=== PATIENT | male | born 1960 | race Two or more races ===

== ENCOUNTER 2024-05-15 13:54 | Inpatient (IN) | payer OTHER ==
--- OUTSIDE RECORDS SUMMARY | 2024-05-15 13:59 | XMS REPORT | Continuity of Care Document ---
Author Name Unknown Address [address] [facility] [address] [place] [address] [facility] thconnect Address [address] [facility] [address] [place] [address] Care Team Providers Care Visual Presentation Manager Name Role Phone Mary Ann Hernandez Attending Clinician Unavail diamante Allen Attending Clinician Unavailable OMER HANEY P.A. Attending Clinician Unavail SEJAL Ross M.D. Attending Clinician Shellie Ellsworth Attending Clinician Unavailable SELENE JOHNSON M.D. Attending Clinician Unavailab jewell Allen Admitting Clinician Unavailable Jodee Admitting Clinician Unavailable Payers Payer Name Policy Type Policy Number Effective Date Expirati on Date Source [facility] - PHYSICIAN HEALTH CHOICE (MEDICARE REPLACEMENT HMO) [id number] 2022 00:00:00 [facility] ([facility] [id number] [employer] - CHOICE (POS II) [id number] 2017 00:00:00 2022 00:00:00 Problems Condition Name Condition Details Condition Category Status Onset Date Resolution Date Last Treatment Date Treating Clinician Comments Source Gout Gout Problem Active 2021-07 00:00: 00 [facility] Acute gout Acute Gout Problem Active 2021-07 00:00: 00 [facility] Elevated blood-pres sure reading without diagnosis of hypertensi on Elevated Blood-pres sure Reading without Diagnosis of Hypertensi on Problem Active 2021-07 00:00: 00 [facility] Avascular necrosis of bone of hip Avascular Necrosis of Bone of Hip Problem Active 2018-07 00:00: 00 [facility] Abnormal liver function Abnormal Liver Function Problem Active 15 00:00: 00 [facility] Prediabete s Prediabete s Problem Active 2017-07 00:00: 00 [facility] Osteoarthr itis Osteoarthr itis Problem Active 2017-07 00:00: 00 [facility] Hyperlipid emia Hyperlipid emia Problem Active 02-09 00:00: 00 [facility] Steatosis of liver Steatosis of Liver Problem Active 02-09 00:00: 00 [facility] Vitamin D deficiency Vitamin D Deficiency Problem Active 12-23 00:00: 00 [facility] Hemoglobin A1C - diabetic control finding Hemoglobin a1C - Diabetic Control Finding Problem Active 12-23 00:00: 00 [facility] Clinical finding Clinical Finding Problem Active 12-23 00:00: 00 [facility] Trochanter ic bursitis of left hip Trochanter ic bursitis [facility] Hip pain, left Hip pain, left Problem Active [facility] History of gout History of gout Problem Resolve d [facility] Primary localized osteoarthr itis of left hip Primary localized osteoarthr itis of left hip Problem Active [facility] Avascular necrosis of hip, left Avascular necrosis of hip, left Problem Active [facility] Status post left hip replacemen t Status post left hip replacemen t Problem Active [facility] Vitamin D deficiency Vitamin D deficiency Problem Active [facility] [id number] Essential hypertensi on Problem [facility] [id number] Mixed hyperlipid emia Problem [facility] [id number] Chronic gout of multiple sites, unspecifie d cause Problem [facility] [id number] Tophaceous gout Problem [facility] Allergies, Adverse Reactions, Alerts Allergy Name Allergy Type Status Severity Reaction(s) Onset Date Inactive Date Treating Clinician Comments Source dexameth asone Allergy to drug (finding ) [facility] fenoprof en Allergy to drug (finding ) Active [facility] Amoxicil aries Allergy to substanc e Active Severe Hives [facility] Social History Social Habit Start Date Stop Date Quantity Comments Source History of Tobacco Use [facility] Sex Assigned At [facility] Smoking Status Start Date Stop Date Source Former Smoker [facility] Never Smoker [facility] Medications Ordered Medication Name Filled Medication Name Start Date Stop Date Current Medication? Ordering Clinician Indication Dosage Frequency Signature (SIG) Comments Components Source Icosapent Ethyl 1 GM Icosapent Ethyl 1 GM 8-13 00:00: 00 No 2{capsu les_wit h_meals } BID Icosapent Ethyl 1 GM Gabapentin 300 MG Oral Capsule Gabapentin 300 MG Oral Capsule 1-05 00:00: 00 Yes SEJAL DALAL M.D. Q0.5D TAKE 1 CAPSULE TWICE DAILY. [facility] Gabapentin 100 MG Oral Capsule Gabapentin 100 MG Oral Capsule 2019-07 2 00:00: 00 Yes SEJAL DALAL M.D. TAKE ONE CAPSULE BY MOUTH EVERY NIGHT AT BEDTIME [facility] Vitamin D 125 MCG (5000 UT) CAPS Vitamin D 125 MCG (5000 UT) CAPS 2019-07 2 00:00: 00 Yes SEJAL DALAL M.D. TAKE DIRECTED. [facility] HYDROcodone -Acetaminop hen 10-325 MG Oral Tablet HYDROcodone -Acetaminop hen 10-325 MG Oral Tablet 2019-07 0-22 00:00: 00 Yes SEJAL DALAL M.D. 1 Q4H TAKE 1 TABLET EVERY 4 HOURS [facility] traMADol HCl - 50 MG Oral Tablet traMADol HCl - 50 MG Oral Tablet 2019-07 0-02 00:00: 00 Yes SEJAL DALAL M.D. 1 TO 2 TABLET EVERY 6-8 HOURS PRN PN [facility] Vitamin D3 1.25 MG (91749 UT) TABS Vitamin D3 1.25 MG (94618 UT) TABS 9-23 00:00: 00 Yes SEJAL DALAL M.D. TAKE 1 TABLET Weekly FOR 8 WEEKS UNTIL COMPLETE [facility] TaperDex 6-Day 1.5 MG (21) Oral Tablet Therapy Pack TaperDex 6-Day 1.5 MG (21) Oral Tablet Therapy Pack 2018-07 00:00: 00 Yes SELENE JOHNSON M.D. TAKE DIRECTED FOR 6 DAYS [facility] Fenoprofen Calcium 600 MG Oral Tablet Fenoprofen Calcium 600 MG Oral Tablet 2018-07 00:00: 00 Yes SELENE CUPIC M.Husam TAKE 1 CAP 3 TIMES A DAY WITH FOOD AFTER TAPER DEX FINISHED FOR 30 DAYS QTY 90 [facility] allopurinol 100 mg tablet TAKE 2 TABLET BY MOUTH EVERYDAY AT BEDTIME allopurinol 100 mg tablet TAKE 2 TABLET BY MOUTH EVERYDAY AT BEDTIME No allopurino l 100 mg tablet TAKE 2 TABLET BY MOUTH EVERYDAY AT BEDTIME [facility] febuxostat 40 mg tablet TAKE 1 TABLET BY MOUTH EVERY DAY febuxostat 40 mg tablet TAKE 1 TABLET BY MOUTH EVERY DAY No febuxostat 40 mg tablet TAKE 1 TABLET BY MOUTH EVERY DAY [facility] allopurinol 300 mg tablet TAKE 1 TABLET BY MOUTH EVERY DAY allopurinol 300 mg tablet TAKE 1 TABLET BY MOUTH EVERY DAY No allopurino l 300 mg tablet TAKE 1 TABLET BY MOUTH EVERY DAY [facility] indomethaci n ER 75 mg capsule,ext ended release TAKE 1 CAPSULE BY MOUTH TWICE A DAY NEEDED indomethaci n ER 75 mg capsule,ext ended release TAKE 1 CAPSULE BY MOUTH TWICE A DAY NEEDED No indomethac in ER 75 mg capsule,ex tended release TAKE 1 CAPSULE BY MOUTH TWICE A DAY NEEDED [facility] rosuvastati n 20 mg tablet TAKE 1 TABLET BY MOUTH EVERYDAY AT BEDTIME rosuvastati n 20 mg tablet TAKE 1 TABLET BY MOUTH EVERYDAY AT BEDTIME No rosuvastat in 20 mg tablet TAKE 1 TABLET BY MOUTH EVERYDAY AT BEDTIME [facility] aspirin 325 mg tablet,oneal yed release TAKE 1 TABLET BY MOUTH EVERY 12 HOURS aspirin 325 mg tablet,oneal yed release TAKE 1 TABLET BY MOUTH EVERY 12 HOURS No aspirin 325 mg tablet,del ayed release TAKE 1 TABLET BY MOUTH EVERY 12 HOURS [facility] cholecalcif charly (vitamin D3) 125 mcg (5,000 unit) capsule TAKE DIRECTED. cholecalcif charly (vitamin D3) 125 mcg (5,000 unit) capsule TAKE DIRECTED. No cholecalci ferol (vitamin D3) 125 mcg (5,000 unit) capsule TAKE DIRECTED. [facility] gabapentin 300 mg capsule TAKE 1 CAPSULE BY MOUTH TWICE A DAY gabapentin 300 mg capsule TAKE 1 CAPSULE BY MOUTH TWICE A DAY No gabapentin 300 mg capsule TAKE 1 CAPSULE BY MOUTH TWICE A DAY [facility] indomethaci n ER 75 mg capsule,ext ended release TAKE 1 CAPSULE BY MOUTH TWICE A DAY NEEDED indomethaci n ER 75 mg capsule,ext ended release TAKE 1 CAPSULE BY MOUTH TWICE A DAY NEEDED No indomethac in ER 75 mg capsule,ex tended release TAKE 1 CAPSULE BY MOUTH TWICE A DAY NEEDED [facility] allopurinol 300 mg tablet TAKE 1 TABLET BY MOUTH EVERY DAY(Replace ment for Febuxostat) allopurinol 300 mg tablet TAKE 1 TABLET BY MOUTH EVERY DAY(Replace ment for Febuxostat) No allopurino l 300 mg tablet TAKE 1 TABLET BY MOUTH EVERY DAY(Replac ement for Febuxostat ) [facility] clobetasol 0.05 % shampoo APPLY A THIN LAYER BY TOPICAL ROUTE ONCE DAILY TO DRY SCALP LEAVE IN PLACE 15 MIN. THEN LATHER AND RINSE. clobetasol 0.05 % shampoo APPLY A THIN LAYER BY TOPICAL ROUTE ONCE DAILY TO DRY SCALP LEAVE IN PLACE 15 MIN. THEN LATHER AND RINSE. No clobetasol 0.05 % shampoo APPLY A THIN LAYER BY TOPICAL ROUTE ONCE DAILY TO DRY SCALP LEAVE IN PLACE 15 MIN. THEN LATHER AND RINSE. [facility] febuxostat 80 mg tablet TAKE 1 TABLET BY MOUTH EVERY DAY febuxostat 80 mg tablet TAKE 1 TABLET BY MOUTH EVERY DAY No febuxostat 80 mg tablet TAKE 1 TABLET BY MOUTH EVERY DAY [facility] rosuvastati n 20 mg tablet TAKE 1 TABLET BY MOUTH EVERY DAY@ BEDTIME rosuvastati n 20 mg tablet TAKE 1 TABLET BY MOUTH EVERY DAY@ BEDTIME No rosuvastat in 20 mg tablet TAKE 1 TABLET BY MOUTH EVERY DAY@ BEDTIME [facility] indomethaci n ER 75 mg capsule,ext ended release TAKE 1 CAPSULE BY MOUTH TWICE A DAY NEEDED indomethaci n ER 75 mg capsule,ext ended release TAKE 1 CAPSULE BY MOUTH TWICE A DAY NEEDED No indomethac in ER 75 mg capsule,ex tended release TAKE 1 CAPSULE BY MOUTH TWICE A DAY NEEDED [facility] rosuvastati n 20 mg tablet TAKE 1 TABLET BY MOUTH AT BEDTIME rosuvastati n 20 mg tablet TAKE 1 TABLET BY MOUTH AT BEDTIME No rosuvastat in 20 mg tablet TAKE 1 TABLET BY MOUTH AT BEDTIME [facility] indomethaci n ER 75 mg capsule,ext ended release TAKE 1 CAPSULE BY MOUTH TWICE A DAY NEEDED indomethaci n ER 75 mg capsule,ext ended release TAKE 1 CAPSULE BY MOUTH TWICE A DAY NEEDED No indomethac in ER 75 mg capsule,ex tended release TAKE 1 CAPSULE BY MOUTH TWICE A DAY NEEDED [facility] rosuvastati n 20 mg tablet TAKE 1 TABLET BY MOUTH AT BEDTIME rosuvastati n 20 mg tablet TAKE 1 TABLET BY MOUTH AT BEDTIME No rosuvastat in 20 mg tablet TAKE 1 TABLET BY MOUTH AT BEDTIME [facility] Uloric 40 mg tablet Take 1 tablet every day by oral route. Uloric 40 mg tablet Take 1 tablet every day by oral route. No 1 Q1D Uloric 40 mg tablet Take 1 tablet every day by oral route. [facility] Indomethaci n ER 75 MG Oral Capsule Extended Release Indomethaci n ER 75 MG Oral Capsule Extended Release Yes [facility] Allopurinol 300 MG Oral Tablet Allopurinol 300 MG Oral Tablet Yes [facility] Crestor 20 MG Oral Tablet Crestor 20 MG Oral Tablet Yes [facility] Indomethaci n ER 75 MG Indomethaci n ER 75 MG No 1{capsu le_with _food} QD Indomethac in ER 75 MG Allopurinol 300 MG Allopurinol 300 MG No 1{table t} QD Allopurino l 300 MG Rosuvastati n Calcium 40 MG Rosuvastati n Calcium 40 MG No 1{table t} QD Rosuvastat in Calcium 40 MG Vital Signs Vital Name Observation Time Observation Value Comments S ource temperature 2024-04-09 13:20:00 97.4 [degF] Com mon [facility] bmi 2024-04-09 13:20:00 27.63 kg/m2 Comm on [facility] oximetry 2024-04-09 13:20:00 98 % Commo n [facility] respiratory rate 2024-04-09 13:20:00 16 /min [facility] blood pressure systolic 2024-04-09 13:20:00 122 mm[Hg] [facility] blood pressure diastolic 2024-04-09 13:20:00 76 mm[Hg] [facility] height 2024-04-09 13:20:00 63 [in_i] Commo n [facility] weight 2024-04-09 13:20:00 156.0 [lb_av] Co mmon [facility] height 2024-03-12 13:20:00 63 [in_i] Commo n [facility] weight 2024-03-12 13:20:00 154 [lb_av] Comm on [facility] temperature 2024-03-12 13:20:00 98.3 [degF] Com [facility] bmi 2024-03-12 13:20:00 27.28 kg/m2 Comm on [facility] oximetry 2024-03-12 13:20:00 98 % Commo n [facility] respiratory rate 2024-03-12 13:20:00 16 /min Common [facility] blood pressure systolic 2024-03-12 13:20:00 158 mm[Hg] Common [facility] blood pressure diastolic 2024-03-12 13:20:00 72 mm[Hg] Common [facility] height 2024-03-12 13:20:00 63 [in_i] Commo n [facility] weight 2024-03-12 13:20:00 154 [lb_av] Comm on [facility] temperature 2024-03-12 13:20:00 98.3 [degF] Com [facility] bmi 2024-03-12 13:20:00 27.28 kg/m2 Comm on [facility] oximetry 2024-03-12 13:20:00 98 % Commo n [facility] respiratory rate 2024-03-12 13:20:00 16 /min Common [facility] blood pressure systolic 2024-03-12 13:20:00 158 mm[Hg] [facility] blood pressure diastolic 2024-03-12 13:20:00 72 mm[Hg] Common [facility] height 2024-02-13 13:20:00 63 [in_i] Commo n [facility] weight 2024-02-13 13:20:00 155 [lb_av] Comm on [facility] temperature 2024-02-13 13:20:00 97.5 [degF] Com mon [facility] bmi 2024-02-13 13:20:00 27.45 kg/m2 Comm on [facility] oximetry 2024-02-13 13:20:00 96 % Commo n [facility] respiratory rate 2024-02-13 13:20:00 16 /min Common [facility] blood pressure systolic 2024-02-13 13:20:00 142 mm[Hg] [facility] blood pressure diastolic 2024-02-13 13:20:00 80 mm[Hg] [facility] BP Diastolic 2022-12-30 00:00:00 82 mm[Hg] [facility] Height 2022-12-30 00:00:00 63 [in_i] [facility] BMI (Body Mass Index) 2022-12-30 00:00:00 29.8 kg/m2 [facility] ly Practice BP Systolic 2022-12-30 00:00:00 137 mm[Hg] [facility] Body Weight 2022-12-30 00:00:00 168 [lb_av] [facility] BP Diastolic 2022-05-24 00:00:00 72 mm[Hg] [facility] Height 2022-05-24 00:00:00 63 [in_i] [facility] BMI (Body Mass Index) 2022-05-24 00:00:00 29 kg/m2 [facility] Practice BP Systolic 2022-05-24 00:00:00 158 mm[Hg] [facility] Body Weight 2022-05-24 00:00:00 163.9 [lb_av] [facility] BP Diastolic 2022-05-06 00:00:00 70 mm[Hg] [facility] Height 2022-05-06 00:00:00 63 [in_i] [facility] ge Family Practice BMI (Body Mass Index) 2022-05-06 00:00:00 28 kg/m2 [facility] ly Practice BP Systolic 2022-05-06 00:00:00 136 mm[Hg] [facility] Body Weight 2022-05-06 00:00:00 158 [lb_av] [facility] BP Diastolic 2021-02-03 00:00:00 78 mm[Hg] Med [facility] Height 2021-02-03 00:00:00 63 [in_i] [facility] BMI (Body Mass Index) 2021-02-03 00:00:00 27.6 kg/m2 [facility] ly Practice BP Systolic 2021-02-03 00:00:00 118 mm[Hg] [facility] Body Weight 2021-02-03 00:00:00 156 [lb_av] [facility] Height 2020-02-19 00:00:00 63 [in_i] [facility] ge Family Practice BMI (Body Mass Index) 2020-02-19 00:00:00 28.7 kg/m2 [facility] ly Practice Body Weight 2020-02-19 00:00:00 162 [lb_av] [facility] BP Diastolic 2019-04-11 00:00:00 76 mm[Hg] [facility] Height 2019-04-11 00:00:00 63 [in_i] [facility] ge Family Practice BMI (Body Mass Index) 2019-04-11 00:00:00 27.8 kg/m2 [facility] ly Practice BP Systolic 2019-04-11 00:00:00 126 mm[Hg] [facility] Body Weight 2019-04-11 00:00:00 157 [lb_av] [facility] BP Diastolic 2019-01-25 00:00:00 72 mm[Hg] [facility] Height 2019-01-25 00:00:00 63 [in_i] [facility] BMI (Body Mass Index) 2019-01-25 00:00:00 28.4 kg/m2 [facility] ly Practice BP Systolic 2019-01-25 00:00:00 124 mm[Hg] [facility] Body Weight 2019-01-25 00:00:00 160.2 [lb_av] [facility] Body height 2020-07-09 10:55:00 64 [in_us] [facility] Weight 2020-07-09 10:55:00 162 [lb_av] [facility] Body mass index (BMI) [Ratio] 2020-07-09 10:55:00 27.81 kg/m2 [facility] Body height 2020-05-21 15:00:00 64 [in_us] [facility] Weight 2020-05-21 15:00:00 162 [lb_av] [facility] Body mass index (BMI) [Ratio] 2020-05-21 15:00:00 27.81 kg/m2 [facility] Body height 2020-04-16 15:23:00 64 [in_us] [facility] Weight 2020-04-16 15:23:00 162 [lb_av] [facility] Body mass index (BMI) [Ratio] 2020-04-16 15:23:00 27.81 kg/m2 [facility] Procedures Procedure Date / Time Performed Performing Clinician Source Post Op Promis 29 Survey 2020-06-05 00:00:00 [facility] [U] XRAY HIP UNILATERAL MIN 2 VWS LEFT [id number] 2020-05-19 00:00:00 [facility] Total Replacement of Hip 2020-04-30 00:00:00 [facility] Physical Therapy 2019-05-28 00:00:00 [facility] US, liver 2019-04-11 00:00:00 [facility] MRI, hip, w/o contrast 2019-04-11 00:00:00 [facility] Colonoscopy 2013-07-31 00:00:00 [facility] History of Knee Surgery [facility] Plan of Care Planned Activity Planned Date Details Comments Source Diagnostic Test Pending 2022-12-30 00:00:00 uric acid, serum or plasma [code = uric acid, serum or plasma] [facility] Diagnostic Test Pending 2022-12-30 00:00:00 CMP, serum or plasma [code = CMP, serum or plasma] [facility] Diagnostic Test Pending 2022-12-30 00:00:00 lipid panel, serum [code = lipid panel, serum] [facility] Diagnostic Test Pending 2022-12-30 00:00:00 CBC w/ auto diff [code = CBC w/ auto diff] [facility] Diagnostic Test Pending 2022-12-30 00:00:00 PSA, serum or plasma [code = PSA, serum or plasma] [facility] Start Date/Time End Date/Time Encounter Type Admission Type Attending Clinicians Care Facility Care Department Encounter ID Source 2024-02-13 13:01:01 Outpatient Mary Ann [facility] [id number] [facility] 2024-04-09 00:00:00 2024-04-09 00:00:00 OFFICE VISIT ESTAB PT LEVEL 3 [facility] [id number] [facility] 2024-03-12 00:00:00 2024-03-12 00:00:00 OFFICE VISIT ESTAB [facility] [id number] [facility] 2024-03-12 00:00:00 2024-03-12 00:00:00 INIT ANNUAL [facility] WELLNESS VISIT [facility] [id number] [facility] 2024-03-11 00:00:00 2024-03-11 00:00:00 (TEL) [facility] [id number] [facility] 2024-02-13 00:00:00 2024-02-13 00:00:00 OFFICE VISIT NEW PT LEVEL 4 [facility] [id number] [facility] 2024-02-13 00:00:00 2024-02-13 00:00:00 (TEL) [facility] [id number] [facility] 2023-08-23 00:00:00 2023-08-23 00:00:00 Outpatient Wero_Nathaniel_RUPAL [facility] [id number] [facility] e 2023-02-20 00:00:00 2023-02-20 00:00:00 Outpatient Wero_JOSE [facility] [id number] [facility] e 2022-12-30 00:00:00 2022-12-30 00:00:00 Ronen Augustin MD: [address], [address], [place] [address] , Ph. [facility] - [place] - VM_HOU_Memo rial [id number] [facility] 2022-12-29 00:00:00 2022-12-29 00:00:00 Outpatient Cerana_M VFP VFP [id number] [facility] 2022-12-29 00:00:00 2022-12-29 00:00:00 Outpatient Cerana_M VFP VFP [id number] [facility] 2022-12-29 00:00:00 2022-12-29 00:00:00 Outpatient Cerana_M_HO U_MD VFP VFP [id number] [facility] 2022-12-10 00:00:00 2022-12-10 00:00:00 Outpatient Cerana_M VFP VFP [id number] [facility] 2022-09-28 00:00:00 2022-09-28 00:00:00 Outpatient Cerana_M VFP VFP [id number] [facility] 2022-08-11 00:00:00 2022-08-11 00:00:00 Outpatient Cerana_M VFP VFP [id number] [facility] 2022-07-07 00:00:00 2022-07-07 00:00:00 Outpatient Cerana_M VFP VFP [id number] [facility] 2022-06-02 00:00:00 2022-06-02 00:00:00 Outpatient Cerana_M VFP VFP [id number] [facility] 2022-05-24 00:00:00 2022-05-24 00:00:00 Outpatient Cerana_M VFP VFP [id number] [facility] 2022-05-24 00:00:00 2022-05-24 00:00:00 Ronen Augustin MD: [address], [address], [place] [address] , Ph. [facility]FP [place] - [facility] [place] - [facility]_Mem[facility] rial [id number] [facility] 2022-05-06 00:00:00 2022-05-06 00:00:00 Outpatient Cerana_M VFP VFP [id number] [facility] 2022-05-06 00:00:00 2022-05-06 00:00:00 Ronen Augustin MD: [address], [address] [address] , Ph. [facility]FP [place] - [facility] [place] - VM_HOU_Memo rial [id number] [facility] 2022-05-05 00:00:00 2022-05-05 00:00:00 Outpatient Cerana_M VFP VFP [id number] [facility] 2021-02-05 00:00:00 2021-02-05 00:00:00 Outpatient Cerana_M VFP VFP [id number] [facility] 2021-02-03 00:00:00 2021-02-03 00:00:00 Valentin Rosado MD: [address], [address], [place] [address] , Ph. Cerana_M VFP [place] - [facility] - VM_HOU_Memo rial [id number] [facility] 2020-09-02 03:31:00 2020-09-02 03:31:00 Outpatient Cerana_M VFP VFP [id number] [facility] 2020-07-09 09:15:00 2020-07-09 09:15:00 Appointmen t; OMER HANEY P.A. ADAMEK, NICOLE, P.Lisbet. [facility] Orthopedics - [facility] [id number] [place] [facility] 2020-05-21 13:45:00 2020-05-21 13:45:00 Appointmen t; OMER HANEY P.A. ADAMEK, NICOLE PConrado [facility] Orthopedics at [facility] A [id number] [place] [facility] 2020-05-05 10:30:00 2020-05-05 10:30:00 Appointmen t; SEJAL DALAL M.D. FREEDHAND, ADAM, M.D. [facility] [id number] [place] [facility] 2020-04-16 13:30:00 2020-04-16 13:30:00 Appointmen t; SEJAL DALAL M.D. FREEDHAND, ADAM, M.D. [facility] Orthopedics [facility] [id number] [place] [facility] 2020-03-08 12:08:00 2020-03-08 12:08:00 Outpatient Feldman_M VFP VFP [id number] [facility] 2020-02-21 09:32:00 2020-02-21 09:32:00 Outpatient Feldman_M VFP VFP [id number] [facility] 2020-02-19 00:00:00 2020-02-19 00:00:00 Ronen Castro MD: [address], [facility] [address], [place] [address] , Ph. Feldman_M VFP [facility] - VM_HOU_Memo [facility] [id number] [facility] 2019-05-28 14:00:00 2019-05-28 14:00:00 Appointmen t; SELENE JOHNSON M.D. CUPIC, ZORAN, M.D. [facility] Orthopedics [facility] [id number] [place] [facility] 2019-04-11 00:00:00 2019-04-11 00:00:00 Ronen Castro MD: [address] [facility] [address], [place] [address] , Ph. [facility] [phone] [id number] [facility] 2019-01-25 00:00:00 2019-01-25 00:00:00 Ronen Castro MD: [id number], [facility] [address], [place] [address] , Ph. [facility] [phone] [id number] [facility] Results Test Description Test Time Test Comments Results Result Co mments Source Hemoglobin A1c/Hemoglobin.total in [id number] 00:00:00* Test Item Value Reference Range Interpretation Comme [facility] Hemoglobin A1c/Hemoglobin.to mahendra in Blood (test code = 4548-4) 6.0 % 1.0-5.7 H average blood glucose (calcu lation) (test code = average blood glucose (calculation)) 126 mg/dL [facility] - Serum or [id number] 00:00:00* Test Item Value Reference Range Interpretation Comme nts HDL (test code = HDL) 131 mg/dL triglyceride (test code = triglyceride) 93 mg/dL <150 VLDL (calculated) (test code = VLDL (calculated)) 19 mg/dL cholesterol/HDL ratio (test code = cholesterol/HDL ratio) 2.0 mg/dL non-HDL cholesterol (calcula rosemarie) (test code = non-HDL cholesterol (calculated)) 137 mg/dL <160 cholesterol (test code = cholesterol) 268 mg/dL <200 H Cholesterol in LDL [Mass/vol ume] in Serum or Plasma (test code = 2089-1) 118 mg/dL <130 [facility] CenterDahlddog46-Uptkddmdgdkure D3+25-Hydroxyvitamin D2 [Mass/volume] in Serum or [id number] 00:00:00* Test Item Value Reference Range Interpretation Comme [facility] vitamin D 25OH (test code = vitamin D 25OH) 26.7 NG/mL 30.0-96.0 L [facility], serum or [id number] 00:00:00* Test Item Value Reference Range Interpretation Comme [facility] PSA, total (test code = PSA, total) 1.06 NG/mL <4.00 [facility] Center[facility] [Mass/volume] in Serum or [id number] 00:00:00 * Test Item Value Reference Range Interpretation Comme [facility] uric acid (test code = uric acid) 7.6 mg/dL 3.5-7.2 H [facility] CenterCom[facility] 2000 panel - Serum or Plasma 2022-05-06 00:00:00* Test Item Value Reference Range Interpretation Comme [facility] ALT (test code = ALT) 43 U/L 0-55 AST (test code = AST) 42 U/L 5-34 H BUN (test code = BUN) 14.4 mg/dL 8.4-25.0 alk phos (test code = alk phos) 59 unit/L 40-150 glucose (test code = glucose) 94 mg/dL 70-99 albumin (test code = albumin) 4.7 g/dL 3.4-5.1 creatinine (test code = creatinine) 0.86 mg/dL 0.72-1.25 eGFR (test code = eGFR) >60 total bilirubin (test code = total bilirubin) 0.6 mg/dL 0.2-1.2 sodium (test code = sodium) 145 mEq/L 135-145 potassium (test code = potassium) 4.5 mEq/L 3.5-5.3 chloride (test code = chloride) 101 mmol/L 98-110 total protein (test code = t otal protein) 8.3 g/dL 6.1-8.2 H calcium (test code = calcium) 10.5 mg/dL 8.8-10.2 H CO2 (test code = CO2) 29.5 mmol/L 20.0-32.0 anion gap (test code = anion gap) 15 [facility][U] XRAY HIP UNILATERAL MIN 2 VWS LEFT [id number] 14:17:00Images acquired, not reported on this accession number.[facility][U] XRAY HIP UNILATERAL MIN 2 VWS LEFT [id number] 13:38:00Images acquired, not reported on this accession number.[facility]
[2024-05-15 15:46] LABS: Absolute Basophils 0.1 K/uL (0-0.5); Absolute Lymphocytes (CBC) 1.3 K/uL (0.7-4.9); Absolute Monocytes 1.4 K/uL (0.1-1.3); Basophils % 0.3 % (0-1.3); Eosinophils % 0.1 % (0-4.4); Hematocrit 37.3 % (39.6-49.0); Hemoglobin 12.5 g/dL (13.6-17.9); Lymphocytes % 4.9 % (15.3-44.8); MCH 31.9 pg (27.0-35.0); MCHC 33.6 g/dL (32.0-36.0); MCV 95.1 fL (80-100); MPV 7.2 fL (7.6-11.3); Monocytes % 5.1 % (3.3-12.3); Neutrophils % 89.6 % (41.7-73.7); Platelets 302 thou/uL (152-406); RBC Red Blood Cell Count 3.93 M/uL (4.33-5.43); Red Cell Distribution Width 14.3 % (12.1-15.2)
[2024-05-15 16:02] LABS: PT Prothrombin Time 10.8 SECONDS (9.4-12.5); PTT, Activated Partial Thromb 39.7 SECONDS (24.3-36.9); Protime INR 0.96
[2024-05-15] MEDS ORDERED: FENTANYL CITR 100 MCG/2 ML ONE (16:07)
[2024-05-15] MEDS ORDERED: VANCOMYCIN 1 GM/VIAL ONE (16:07)
[2024-05-15] MEDS ORDERED: NA CHLORIDE 0.9% 250 ML ONE (16:07)
[2024-05-15] MEDS ORDERED: CEFEPIME 1 GM/VIAL ONE (16:08)
[2024-05-15] MEDS ORDERED: NA CHLORIDE 0.9% 1,000 ML ONE ×2 (16:08→16:53)
[2024-05-15] MEDS ORDERED: NA CHLORIDE 0.9% 100 ML ONE (16:08)
[2024-05-15 16:15] LABS: Albumin 2.6 g/dL (3.4-5.0); Albumin/Globulin Ratio 0.5 (1.1-1.8); Anion Gap 12.4 mEq/L (5.0-15.0); Bilirubin Total 0.9 mg/dL (0.2-1.0); Globulin 5.6 g/dL (2.3-3.5); Potassium 3.4 mEq/L (3.5-5.1); Protein, Total 8.2 g/dL (6.4-8.2)
--- NOTE | 2024-05-15 16:32 | RAD REPORT ---
EXAMINATION: XR LEFT ANKLE CLINICAL INDICATION: Male, 63 years old. Swelling;Pain TECHNIQUE: 3 view radiograph of the left ankle were obtained. COMPARISON: No prior exam. FINDINGS: There is a large amount of soft tissue swelling about the ankle, particularly laterally. N o fracture or dislocation seen. Nonspecific area of sclerosis seen first metatarsal.
--- NOTE | 2024-05-15 16:50 | EDPHYS ---
Physician Documentation [facility] Name: Betsey Gómez Age: 63 yrs Sex: Male : 1960 Arrival Date: 05/15/2024 Time: 13:54 Bed 18 Private MD: ED Physician Migue Laguerre HPI: 05/15 14:15 This 63 yrs old [place] Male presents to ER via Ambulatory with complaints of Wound cp Infection. 14:15 The patient presents with an injury, pain, that is acute, swelling, tenderness. cp 14:15 The complaints affect the lateral aspect of left calf, left lateral ankle, lateral cp aspect of left foot and dorsum of left foot. Onset: The symptoms/episode began/occurred 5 day(s) ago. 14:15 Associated signs and symptoms: Pertinent positives: warmth, Pertinent negatives fever, cp numbness. Treatment prior to arrival includes: no previous treatment. Family member interprets and reports patient was outside when he felt something puncture skin of left ankle about 5 days ago. Historical: - Allergies: 14:07 No Known Allergies; ll1 - Home Meds: 14:07 rosuvastatin oral [Active]; Allopurinol Oral [Active]; ll1 - PMHx: 14:07 Gout; Hypercholesterolemia; ll1 - Immunization history:: Adult Immunizations up to date. - Infectious Disease History:: Denies. - Social history:: Smoking status: Patient denies any tobacco usage or history of. ROS: 14:20 MS/extremity: Positive for erythema, pain, swelling, tenderness, of the left foot and cp left ankle and left lower leg, 14:20 Constitutional: Negative for fever, poor PO intake, cp 14:20 Respiratory: Negative for cough, shortness of breath, wheezing, 14:20 Abdomen/GI: Negative for abdominal pain, vomiting, diarrhea, constipation, 14:20 Neuro: Negative for altered mental status, dizziness, headache, weakness, 14:20 Eyes: Negative for injury, pain, redness, and discharge, cp 14:20 Cardiovascular: Negative for chest pain, cp 14:20 All other systems are negative, Exam: 14:25 Constitutional: The patient appears in no acute distress, alert, awake, cp non-diaphoretic, non-toxic, well developed, well nourished, 14:25 Head/Face: Normocephalic, atraumatic. cp 14:25 Eyes: Periorbital structures: appear normal, Conjunctiva: normal, no exudate, no injection, Sclera: no appreciated abnormality, Lids and lashes: appear normal, bilaterally, 14:25 ENT: External ear(s): are unremarkable, Nose: is normal, Mouth: Lips: moist, Oral mucosa: pink and intact, moist, Posterior pharynx: is normal, airway is patent, no erythema, no exudate, 14:25 Chest/axilla: Inspection: normal, 14:25 Cardiovascular: Rate: normal, Rhythm: regular, 14:25 Respiratory: the patient does not display signs of respiratory distress, Respirations: normal, no use of accessory muscles, no retractions, labored breathing, is not present, Breath sounds: are clear throughout, no decreased breath sounds, no stridor, no wheezing, 14:25 Abdomen/GI: Inspection: abdomen appears normal, Palpation: abdomen is soft and non-tender, in all quadrants, 14:25 Back: pain, is absent, ROM is normal, 14:25 Musculoskeletal/extremity: Extremities: noted in the left lower leg and left ankle and cp lef foot: Circumferential erythema and swelling noted, moderate amount of swelling noted to lateral malleolus of the left ankle, there is drainage that appears purulent and superficial wounds noted, tenderness to palpation is appreciated scant amount of drainage expressed, Pulses: noted to be 2+ in the left dorsalis pedis artery, the left foot and left ankle and left lower leg Sensation intact. 14:25 Neuro: Orientation: to person, place \T\ time. Mentation: is normal, Motor: moves all cp fours, 15:30 ECG was reviewed by the Attending Physician. cp Vital Signs: 14:06 BP 122 / 70; Pulse 89; Resp 16; Temp 97.4; Pulse Ox 98% ; ll1 16:43 BP 149 / 70; Pulse 63; Resp 18; Pulse Ox 95% on R/A; mb9 17:52 BP 145 / 98; Pulse 63; Resp 16; Pulse Ox 100% on R/A; mb9 19:00 BP 132 / 78; Pulse 65; Resp 18; Pulse Ox 98% on R/A; al5 21:30 BP 124 / 62; Pulse 81; Resp 16; Pulse Ox 97% on R/A; Weight 76.2 kg; Height 5 ft. 3 in. al5 ; 21:30 Body Mass Index 29.76 (76.20 kg, 160.02 cm) al5 MDM: 14:07 Medical Screening Exam initiated cp 15:00 Differential diagnosis: sepsis, cellulitis, septic joint, abscess. cp 16:45 Data reviewed: vital signs, nurses notes, lab test result(s), EKG, radiologic studies, cp plain films, ultrasound, and as a result, I will admit patient. 16:45 Management of patient was discussed with the following: Hospitalist: Abigail العراقي will admit after discussion. I considered the following discharge prescriptions or medication management in the emergency department Medications were administered in the Emergency Department. See MAR. Independent interpretation of the following test(s) in the Emergency Department EKG: See my EKG interpretation above. 17:20 Management of patient was discussed with the following: Advisor To Command In Combat: DR Borja will cp consult after discussion. 17:30 Post IV fluid administration reassessment for Sepsis: Client not prescribed the 30 cp mL/kg IVF due to: Amount of IVF prescribed: 1999 Sepsis focused reassessment complete. Heart: Regular rate/rhythm noted. Lungs: Noted to be clear bilaterally. Current vital signs reviewed: Yes. 05/15 14:13 Order name: Blood Culture Adult (2) 05/15 14:13 Order name: CBC with Diff 05/15 16:04 Interpretation: Normal except: WBC 26.70; RBC 3.93; HGB 12.5; HCT 37.3; MPV 7.2; RICHARD% cp 89.6; LYM% 4.9; NEUT A 24.0; MNA 1.4. 05/15 14:13 Order name: CMP; Complete Time: 16:42 05/15 16:42 Interpretation: Normal except: NA 133; K 3.4; GLUC 150; BUN 25; CRE 1.76; GFR 42; ALK cp 469; ALT 196; AST 99; ALB 2.6; GLOB 5.6; A/G 0.5. 05/15 14:13 Order name: Lactate w/ 2H reflex if indic.; Complete Time: 16:04 05/15 16:04 Interpretation: Abnormal: LAC 2.4. 05/15 14:13 Order name: Protime (+inr); Complete Time: 16:04 05/15 16:09 Interpretation: Reviewed. cp 05/15 14:13 Order name: Ptt, Activated; Complete Time: 16:04 cp 05/15 16:09 Interpretation: Reviewed. cp 05/15 14:13 Order name: Urinalysis w/ reflexes cp 05/15 14:13 Order name: Wound Culture cp 05/15 15:57 Order name: Manual Differential EDMS 05/15 17:40 Order name: Lactate w/ 2H reflex if indic. mb9 05/15 18:01 Order name: Ghost Lactate-NO COLLECT Timer EDMS 05/15 18:35 Order name: Lactate w/ 2H reflex if indic. EDMS 05/15 16:03 Order name: XRAY Ankle LEFT 3 view; Complete Time: 16:42 cp 05/15 16:03 Order name: US Extremity Venous Unilateral Ltd; Complete Time: 17:21 cp 05/15 16:03 Order name: Lower Extremity Artery Uni Ltd; Complete Time: 17:21 cp 05/15 17:19 Order name: CONS Physician Consult EDMS 05/15 14:13 Order name: Accucheck; Complete Time: 15:59 cp 05/15 14:13 Order name: Cardiac monitoring; Complete Time: 15:39 cp 05/15 14:13 Order name: EKG - Nurse/Tech; Complete Time: 15:39 cp 05/15 14:13 Order name: IV Saline Lock - Large Bore; Complete Time: 15:37 cp 05/15 14:13 Order name: Labs collected and sent; Complete Time: 15:37 cp 05/15 14:13 Order name: O2 Per Protocol; Complete Time: 15:39 cp 05/15 14:13 Order name: O2 Sat Monitoring; Complete Time: 15:39 cp 05/15 14:13 Order name: Vital Signs; Complete Time: 15:40 cp EC:30 Rate is 64 beats/min. Rhythm is regular. ME interval is normal. QRS interval is normal. cp QT interval is normal. Interpreted by me. Reviewed by me. Administered Medications: 16:16 Drug: fentaNYL (PF) IVP 25 mcg IVP once Route: IVP; Site: right forearm; mb9 17:00 Follow up: Response: No adverse reaction mb9 16:17 Drug: NS 0.9% IV 1000 ml IV at 1000 ml once; to be given as a bolus over 60 minutes mb9 Route: IV; Rate: 1000 ml; Site: right forearm; 17:00 Follow up: Response: No adverse reaction; IV Status: Completed infusion mb9 16:17 Drug: Cefepime IVPB 1 grams IVPB at 200 ml/hr once over 30 mins; (mix in NS 100 mL) mb9 Route: IVPB; Rate: 200 ml/hr; Infused Over: 30 mins; Site: right forearm; 16:47 Follow up: Response: No adverse reaction; IV Status: Completed infusion mb9 16:47 Drug: vancoMYCIN IVPB 1 grams IVPB once over 2 hrs Route: IVPB; Infused Over: 2 hrs; mb9 Site: right forearm; 18:53 Follow up: Response: No adverse reaction; IV Status: Completed infusion mb9 17:00 Drug: NS 0.9% IV 1000 ml IV at 1 bolus Per protocol; to be given as a bolus over 60 mb9 minutes Route: IV; Rate: 1 bolus; Site: right forearm; 17:54 Follow up: Response: No adverse reaction; IV Status: Completed infusion mb9 Disposition Summary: 05/15/24 16:49 Hospitalization Ordered Notes: Hospitalization Status: Inpatient Admission cp Provider: Agustina Sung cp Location: Telemetry/MedSur (Inpatient) cp Condition: Stable cp Problem: new cp Symptoms: have improved cp Bed/Room Type: Standard Room Assignment: 222(05/15/24 21:11) kl Diagnosis - Cellulitis of left lower limb cp - Cutaneous abscess of left lower limb cp - Sepsis, unspecified organism cp Forms: - Medication Reconciliation Form cp - SBAR form cp - Leadership Thank You Letter cp Signatures: Dispatcher [employer] Deepa Duran RN RN kl Page, Corey, PA PA cp Brad Ghosh RN RN ll1 Kelley Lehman RN RN mb9 Corrections: (The following items were deleted from the chart) 14:14 14:14 BLOOD CULTURE*+BA.LAB.BRZ ordered. EDMS EDMS 14:14 14:14 CBC+H.LAB.BRZ ordered. EDMS EDMS 14:14 14:14 COMPREHENSIVE METABOLIC PANEL+C.LAB.BRZ ordered. EDMS EDMS 14:14 14:14 LACTATE+C.LAB.BRZ ordered. EDMS EDMS 14:14 14:14 PROTIME (+INR)+COAG.LAB.BRZ ordered. EDMS EDMS 14:14 14:14 PTT, ACTIVATED+COAG.LAB.BRZ ordered. EDMS EDMS 14:14 14:14 Urinalysis+U.LAB.BRZ ordered. EDMS EDMS 14:14 14:14 Wound Culture+BA.LAB.BRZ ordered. EDMS EDMS 21:11 16:49 cp kl 05/16 21:12 10 14:20 All other systems are negative, cp cp
--- NOTE | 2024-05-15 16:50 | ER ---
Nurse's Notes [facility] Name: Betsey Gómez Age: 63 yrs Sex: Male : 1960 Arrival Date: 05/15/2024 Time: 13:54 Bed 18 Private MD: Diagnosis: Cellulitis of left lower limb;Cutaneous abscess of left lower limb;Sepsis, unspecified organism Presentation: 05/15 14:06 Chief complaint: Patient's son or daughter states: LEFT ANKLE INJURY 5 DAYS AGO WORKING ll1 ON FENCE, NOW EDEMA/ERYTHEMA TO LEFT ANKLE AND FOOT WITH IMPAIRED GAIT. Coronavirus screen: At this time, the client does not indicate any symptoms associated with coronavirus-19. Ebola Screen: No symptoms or risks identified at this time. Initial Sepsis Screen: Does the patient meet any 2 criteria? No. Patient's initial sepsis screen is negative. Does the patient have a suspected source of infection? No. Patient's initial sepsis screen is negative. Risk Assessment: Do you want to hurt yourself or someone else? Patient reports no desire to harm self or others. Onset of symptoms is unknown. 14:06 Method Of Arrival: Ambulatory ll1 14:06 Acuity: SHALINI 3 ll1 Triage Assessment: 14:07 General: Appears in no apparent distress. uncomfortable, Behavior is calm, cooperative, ll1 appropriate for age. Pain: Complains of pain in left foot and anterior aspect of left ankle. EENT: No deficits noted. Neuro: No deficits noted. Cardiovascular: No deficits noted. Respiratory: No deficits noted. GI: No signs and/or symptoms were reported involving the gastrointestinal system. : No signs and/or symptoms were reported regarding the genitourinary system. Derm: Skin is red. Musculoskeletal: Swelling present in left foot. Injury Description: Laceration sustained to left foot. Historical: - Allergies: 14:07 No Known Allergies; ll1 - Home Meds: 14:07 rosuvastatin oral [Active]; Allopurinol Oral [Active]; ll1 - PMHx: 14:07 Gout; Hypercholesterolemia; ll1 - Immunization history:: Adult Immunizations up to date. - Infectious Disease History:: Denies. - Social history:: Smoking status: Patient denies any tobacco usage or history of. Screenin:58 [facility] ED Fall Risk Assessment (Adult) History of falling in the last 3 months, mb9 including since admission No falls in past 3 months (0 pts) Confusion or Disorientation No (0 pts) Intoxicated or Sedated No (0 pts) Impaired Gait No (0 pts) Mobility Assist Device Used Altered Elimination No (0 pt) Score/Fall Risk Level 0 - 2 = Low Risk Oriented to surroundings, Maintained a safe environment, Educated pt \T\ family on fall prevention, incl call for assistance when getting out of bed. Abuse screen: Denies threats or abuse. Nutritional screening: No deficits noted. Tuberculosis screening: No symptoms or risk factors identified. Assessment: 15:56 General: Appears in no apparent distress. Behavior is calm, cooperative. Pain: mb9 Complains of pain in left foot Pain radiates to left leg Pain currently is 8 out of 10 on a pain scale. Quality of pain is described as throbbing, Pain began 2-3 days ago. Is continuous. Neuro: [place] Agitation-Sedation Scale (RASS): 0 - Alert and Calm Level of Consciousness is awake, alert, obeys commands, Oriented to person, place, time, situation, Appropriate for age. Cardiovascular: Patient's skin is warm and dry. Cardiovascular: Pulses are 1+ in left posterior tibial artery and left dorsalis pedis artery. Respiratory: Airway is patent Respiratory effort is even, unlabored, Respiratory pattern is regular, symmetrical. GI: Abdomen is round non-distended. : No signs and/or symptoms were reported regarding the genitourinary system. EENT: No signs and/or symptoms were reported regarding the EENT system. Derm: Abscess located on anterior aspect of left ankle is quarter sized, has purulent drainage, has foul odor, is hot to touch, is red. Musculoskeletal: Swelling present in left leg. 17:52 Reassessment: Patient and/or family updated on plan of care and expected duration. Pain mb9 level reassessed. Patient is alert, oriented x 3, equal unlabored respirations, skin warm/dry/pink. Patient states feeling better. Patient states symptoms have improved. 18:54 Reassessment: No changes from previously documented assessment. Patient and/or family mb9 updated on plan of care and expected duration. Pain level reassessed. Patient is alert, oriented x 3, equal unlabored respirations, skin warm/dry/pink. 19:00 General: Appears in no apparent distress. uncomfortable, Behavior is calm, cooperative. al5 Pain: Complains of pain in left lateral malleolus and lateral aspect of left calf. Neuro: Level of Consciousness is awake, alert, obeys commands, Oriented to person, place, time, situation. Cardiovascular: Patient's skin is warm and dry. Respiratory: Airway is patent Respiratory effort is even, unlabored, Respiratory pattern is regular, symmetrical. GI: No signs and/or symptoms were reported involving the gastrointestinal system. : No signs and/or symptoms were reported regarding the genitourinary system. EENT: No signs and/or symptoms were reported regarding the EENT system. Derm: cellulitis to L lower extremity, redness, hot, purulent discharge. 22:00 Reassessment: Patient appears in no apparent distress at this time. No changes from al5 previously documented assessment. Patient and/or family updated on plan of care and expected duration. Pain level reassessed. Patient is alert, oriented x 3, equal unlabored respirations, skin warm/dry/pink. Vital Signs: 14:06 BP 122 / 70; Pulse 89; Resp 16; Temp 97.4; Pulse Ox 98% ; ll1 16:43 BP 149 / 70; Pulse 63; Resp 18; Pulse Ox 95% on R/A; mb9 17:52 BP 145 / 98; Pulse 63; Resp 16; Pulse Ox 100% on R/A; mb9 19:00 BP 132 / 78; Pulse 65; Resp 18; Pulse Ox 98% on R/A; al5 21:30 BP 124 / 62; Pulse 81; Resp 16; Pulse Ox 97% on R/A; Weight 76.2 kg; Height 5 ft. 3 in. al5 ; 21:30 Body Mass Index 29.76 (76.20 kg, 160.02 cm) al5 ED Course: 14:00 Patient arrived in ED. mg5 14:01 Migue Tom PA is PHCP. cp 14:01 Migue Laguerre MD is Attending Physician. cp 14:07 Triage completed. ll1 14:10 Arm band placed on. ll1 15:35 Initial lab(s) drawn, by me, sent to lab. First set of blood cultures drawn by me. bc6 15:37 Blood Culture Adult (2) Sent. bc6 15:37 CBC with Diff Sent. bc6 15:37 CMP Sent. bc6 15:38 Lactate w/ 2H reflex if indic. Sent. bc6 15:38 Protime (+inr) Sent. bc6 15:38 Ptt, Activated Sent. bc6 15:38 Inserted saline lock: 20 gauge in right forearm, using aseptic technique. Blood bc6 collected. Flushed with 10 mL NS. 15:40 Client placed on continuous cardiac and pulse oximetry monitoring. NIBP monitoring iw applied. awake overnight monitor on. 15:42 Kelley Lehman RN is Primary Nurse. mb9 15:58 Placed in gown. Bed in low position. Call light in reach. Side rails up X 1. Provided mb9 Education on: press call light if needing anything. 15:58 EKG done, by ED staff, reviewed by Migue GRACE. mb9 15:59 No provider procedures requiring assistance completed. mb9 16:01 Notified Nurse Practitioner and/or Physician Staff Research Associate of a critical lab result(s), ll1 lactate 2.4. 16:29 XRAY Ankle LEFT 3 view In Process Unspecified. EDMS 16:47 Agustina Sung MD is Hospitalizing Provider. cp 16:52 US Extremity Venous Unilateral Ltd In Process Unspecified. EDMS 16:52 US Lower Extremity Artery Uni Ltd In Process Unspecified. EDMS 18:54 Patient admitted, IV remains in place. mb9 19:03 Report given to BEATRIZ Bruner. mb9 Administered Medications: 16:16 Drug: fentaNYL (PF) IVP 25 mcg IVP once Route: IVP; Site: right forearm; mb9 17:00 Follow up: Response: No adverse reaction mb9 16:17 Drug: NS 0.9% IV 1000 ml IV at 1000 ml once; to be given as a bolus over 60 minutes mb9 Route: IV; Rate: 1000 ml; Site: right forearm; 17:00 Follow up: Response: No adverse reaction; IV Status: Completed infusion mb9 16:17 Drug: Cefepime IVPB 1 grams IVPB at 200 ml/hr once over 30 mins; (mix in NS 100 mL) mb9 Route: IVPB; Rate: 200 ml/hr; Infused Over: 30 mins; Site: right forearm; 16:47 Follow up: Response: No adverse reaction; IV Status: Completed infusion mb9 16:47 Drug: vancoMYCIN IVPB 1 grams IVPB once over 2 hrs Route: IVPB; Infused Over: 2 hrs; mb9 Site: right forearm; 18:53 Follow up: Response: No adverse reaction; IV Status: Completed infusion mb9 17:00 Drug: NS 0.9% IV 1000 ml IV at 1 bolus Per protocol; to be given as a bolus over 60 mb9 minutes Route: IV; Rate: 1 bolus; Site: right forearm; 17:54 Follow up: Response: No adverse reaction; IV Status: Completed infusion mb9 Medication: 15:59 VIS not applicable for this client. mb9 Outcome: 16:49 Decision to Hospitalize by Provider. cp 18:54 Admitted to ER Hold. Please see [facility] for further documentation. mb9 18:54 Condition: stable 18:54 Instructed on the need for admit, 22:34 Patient left the ED. lg3 Signatures: Dispatcher [employer] Beatrice Wallace, RN RN iw Migue Tom PA PA cp Able, Lacie, RN RN lg3 Brad Ghosh RN RN ll1 Kelley Lehman RN RN mb9 Marjorie Jones 6 Meenu Anna 5 Zohreh Shannon RN RN al5
--- NOTE | 2024-05-15 17:14 | P.HP ---
Certification for Inpatient Patient admitted to: Inpatient Patient will require the following post-hospital care: Home Health Services Practitioner: I am a practitioner with admitting privileges, knowledge of patient current condition, hospital course, and medical plan of care. Services: Services provided to patient in accordance with Admission requirements found in Title 42 Section 412.3 of the Code of Federal Regulations Patient History Date of Service: 05/15/24 Reason for admission: Left lower extremity cellulitis, left ankle wound History of Present Illness: 63-year-old male with a past medical history of gout, hyperlipidemia, presents to the emergency room with left lower extremity swelling. He reports left lower extremity lateral ankle, left lateral aspect of the dorsum of the left foot. He reports chills, no reported fever, no reported nausea vomiting chest pain wound started 5 days ago After working in the yard. HPI limited, no family in the room during exam. He denies history of diabetes, he reports history of gout, plan to admit for left lower extremity cellulitis, left lower extremity lateral ankle, foot wound, Dr. Borja for surgery to consult. Migue harkins spoke with physician in the emergency room prior to admitting. Dr. Borja agreed to accept patient. N.p.o. after midnight Allergies No Known Allergies Allergy (Unverified 07/14/14 07:33) - Past Medical/Surgical History -: Hyperlipidemia -: Gout -: Left hip replacement with instrumentation - Social History Smoking Status: Never smoker Alcohol use: No Place of Residence: Home Review of Systems 10-point ROS is otherwise unremarkable General: Unremarkable Physical Examination - Physical Exam General: Alert, In no apparent distress, Oriented x3 HEENT: Atraumatic, Normocephalic, PERRLA Neck: 2+ carotid pulse no bruit, JVD not distended Respiratory: Clear to auscultation bilaterally, Normal air movement Cardiovascular: Other (Left lower extremity cellulitis,), Edema Capillary refill: <2 Seconds Gastrointestinal: Normal bowel sounds, Soft and benign Musculoskeletal: Other (Left lower extremity weakness, left lower extremity cellulitis, with erythema, left foot wound) Integumentary: Other (, left lateral ankle, cellulitis, left foot lateral wound) Neurological: Normal speech, Normal strength at 5/5 x4 extr, Sensation intact - Studies Laboratory Data (last 24 hrs) 05/15/24 05/15/24 05/15/24 15:35 15:35 15:35 WBC 26.70 H Hgb 12.5 L Hct 37.3 L Plt Count 302 PT 10.8 INR 0.96 APTT 39.7 H Sodium 133 L Potassium 3.4 L BUN 25 H Creatinine 1.76 H Glucose 150 H Total Bilirubin 0.9 AST 99 H ALT 196 H Alkaline Phosphatase 469 H Assessment and Plan - Problems (Diagnosis) (1) Cellulitis of left lower extremity Current Visit: Yes Status: Acute (2) Diabetic ulcer of left ankle Current Visit: Yes Status: Acute (3) Gout Current Visit: Yes Status: Acute (4) Hyperlipidemia Current Visit: Yes Status: Acute (5) SIRS (systemic inflammatory response syndrome) Current Visit: Yes Status: Acute (6) Lactic acidosis Current Visit: Yes Status: Acute - Plan Assessment plan Admit to [facility] N.p.o. after midnight for surgical eval in the a.m. with Dr. Borja IV antibiotics, IV p.o. as needed analgesics, Trend lactic, WBCs, gout, wound cultures, hemoglobin A1c, lipid panel in the a.m. Wound care left lower extremity per surgery team Left lower extremity Doppler ultrasound rule out DVT, left lower extremity arterial ultrasound evaluate for blood supply Nursing to Doppler pulses q. shift Hyperlipidemia, gout, resume appropriate home medications nursing to enter home meds PT to eval for DME needs, gait training Full code Diabetic diet Disposition pending hospital course Discharge Plan: Home - Advance Directives Does patient have a Living Will: No Does patient have a Durable POA for Healthcare: No - Code Status/Comfort Care Code Status: Full Code Critical Care: No Time Spent Managing Pts Care (In Minutes): 55
--- NOTE | 2024-05-15 17:18 | RAD REPORT ---
EXAMINATION: US LEFT LOWER EXTREMITY VENOUS DOPPLER CLINICAL INDICATION: Pain;Swelling TECHNIQUE: Complete bilateral duplex sonography of the LEFT lower extremity veins was performed. The examination included compression for vein patency, color Doppler imaging and flow augmentation in response to distal compression of the distal external iliac, common femoral, femoral, popliteal, tibi al, and great and small saphenous veins. COMPARISON: No prior exam. FINDINGS: Duplex sonography testing of the veins of the LEFT lower extremity was performed. Color flow imaging shows all veins to be compressible with [id number] color filling. Pulsatile and phasic flow is present within all lower extremity deep and superficial veins examined. IMPRESSION: There is no deep vein or superficial vein thrombosis.
--- NOTE | 2024-05-15 17:18 | RAD REPORT ---
EXAMINATION:Lower Extremity Artery Uni Ltd CLINICAL INDICATION: Male, 63 years old. Pain;Swelling TECHNIQUE: Arterial duplex ultrasound was performed of the left upper extremity with real-time, color -flow, and spectral wave Doppler evaluation. Ankle brachial indices were not performed. COMPARISON: No prior exam. FINDINGS: No significant plaque throughout the evaluated arterial system. No abnormal waveforms.No evidence of high-grade stenosis or occlusion. IMPRESSION: No significant flow abnormality detected.
[2024-05-15 17:28] LABS: Differential Total Cells Count 100
[2024-05-15 17:29] LABS: Band Neutrophils 2 % (0-1); Blood Morphology Comment NOTED (NOT SEEN); Lymphocytes 6 % (15-42); Monocytes 5 % (0-10); Platelet Estimate ADEQ; Platelets Clumped NOTED; Rouleau NOTED; Segmented Neutrophils 87 % (40-80)
[2024-05-15] MEDS ORDERED: Levofloxacin 750mg IV 750 MG/150 ML BAG IV SCH (22:59)
[2024-05-15] MEDS ORDERED: ACETAMINOPHEN 500 MG TAB PO PRN (22:59)
[2024-05-15] MEDS ORDERED: MELATONIN 5 MG TABLET PO PRN (22:59)
[2024-05-15] MEDS ORDERED: ONDANSETRON 4 MG/2 ML VIAL IV PRN (22:59)
[2024-05-15] MEDS ORDERED: ZOLPIDEM TARTRATE 5 MG TABLET PO PRN (22:59)
[2024-05-15] MEDS: HYDROCODONE/APAP 5/325 MG TAB PO PRN (23:39)
[2024-05-15] MEDS: DOXYCYCLINE 100 MG in NA CHLORIDE 0.9% 100 ML IVPB SCH (23:39)
[2024-05-15] MEDS: Levofloxacin500mg IV 500 MG/100 ML BAG IV ONE (23:48)
[2024-05-16 07:52] LABS: Specific Gravity 1.017 (1.005-1.030); Sqamous Epithelial None Seen /HPF (None Seen); Urine Bacteria None Seen /HPF (<20); Urine Bilirubin NEGATIVE (Negative); Urine Blood Trace (Negative); Urine Clarity Clear (Clear); Urine Color Light-Yellow (Yellow); Urine Culture Reflex Order NOT NEEDED; Urine Glucose NEGATIVE (Negative); Urine Ketones NEGATIVE (Negative); Urine Microscopic Reflex YN ORDER UMIC; Urine Mucus Slight /HPF (None Seen); Urine Nitrite NEGATIVE (Negative); Urine Protein 1+ (Negative); Urine RBC <5 /HPF (None Seen); Urine Urobilinogen Normal (Normal); Urine WBC <5 /HPF (<5); Urine pH 6.5 (5.0-7.0)
[2024-05-16] MEDS: MORPHINE 2 MG/ML SYR IV PRN (08:22)
[2024-05-16 08:46] LABS: Absolute Basophils 0.1 K/uL (0-0.5); Absolute Lymphocytes (CBC) 1.8 K/uL (0.7-4.9); Absolute Monocytes 1.3 K/uL (0.1-1.3); Absolute Neutrophil 16.1 K/uL (1.8-8.0); Basophils % 0.3 % (0-1.3); Eosinophils % 0.1 % (0-4.4); Hematocrit 33.1 % (39.6-49.0); Hemoglobin 11.2 g/dL (13.6-17.9); Lymphocytes % 9.2 % (15.3-44.8); MCH 32.1 pg (27.0-35.0); MCHC 33.9 g/dL (32.0-36.0); MCV 94.8 fL (80-100); MPV 7.2 fL (7.6-11.3); Monocytes % 6.9 % (3.3-12.3); Neutrophils % 83.5 % (41.7-73.7); Nucleated Red Blood Cells % 0.1 % (0-0); Platelets 301 thou/uL (152-406); RBC Red Blood Cell Count 3.49 M/uL (4.33-5.43); Red Cell Distribution Width 14.1 % (12.1-15.2)
[2024-05-16 09:01] LABS: Albumin/Globulin Ratio 0.4 (1.1-1.8); Anion Gap 8.8 mEq/L (5.0-15.0); Bilirubin Total 0.5 mg/dL (0.2-1.0); Globulin 4.8 g/dL (2.3-3.5); Magnesium 2.1 mg/dL (1.6-2.4); Potassium 3.8 mEq/L (3.5-5.1); Protein, Total 6.8 g/dL (6.4-8.2)
--- NOTE | 2024-05-16 09:39 | P.PN ---
Date of Service: 05/16/24 subjective NPO for surgery to eval today for ID LLE ankle/lateral foot ulcer Review of Systems 10-point ROS is otherwise unremarkable as per HPI Physical Examination - Physical Exam General: Alert, In no apparent distress, Oriented x3 HEENT: Atraumatic, Normocephalic, PERRLA Neck: 2+ carotid pulse no bruit, JVD not distended Respiratory: Clear to auscultation bilaterally, Normal air movement Cardiovascular: Other (Left lower extremity cellulitis,), Edema Capillary refill: <2 Seconds Gastrointestinal: Normal bowel sounds, Soft and benign Musculoskeletal: Other (Left lower extremity weakness, left lower extremity cellulitis, with erythema, left foot wound) Integumentary: Other (, left lateral ankle, cellulitis, left foot lateral wound) Neurological: Normal speech, Normal strength at 5/5 x4 extr, Sensation intact Assessment and Plan - Problems (Diagnosis) (1) Cellulitis of left lower extremity Current Visit: Yes Status: Acute (2) Diabetic ulcer of left ankle Current Visit: Yes Status: Acute Hemoglobin A1c 6.1 (3) Gout Current Visit: Yes Status: Acute Pending uric acid level (4) Hyperlipidemia Current Visit: Yes Status: Acute Lipid panel within normal limits (5) SIRS (systemic inflammatory response syndrome) Current Visit: Yes Status: Acute (6) Lactic acidosis Current Visit: Yes Status: Acute (7) transaminitis trending down, trend liver enzyme - Plan Assessment plan Admit to [facility] N.p.o. after midnight for surgical eval in the a.m. with Dr. Borja IV antibiotics, IV p.o. as needed analgesics, ID consult Trend lactic, WBCs, gout, wound cultures, hemoglobin A1c, lipid panel in the a.m. Wound care left lower extremity per surgery team Left lower extremity Doppler ultrasound rule out DVT, left lower extremity arterial ultrasound evaluate for blood supply Venous Doppler no IMPRESSION: There is no deep vein or superficial vein thrombosis. Arterial Doppler No significant flow abnormality detected. Nursing to Doppler pulses q. shift PT to eval for DME needs, gait training Hyperlipidemia, gout, resume appropriate home medications nursing to enter home meds Full code Diabetic diet Disposition pending hospital course Discharge Plan: Home - Advance Directives Does patient have a Living Will: No Does patient have a Durable POA for Healthcare: No - Code Status/Comfort Care Code Status: Full Code Critical Care: No Time Spent Managing Pts Care (In Minutes): 35
[2024-05-16] MEDS: Levofloxacin 750mg IV 750 MG/150 ML BAG IV SCH (11:45)
--- NOTE | 2024-05-16 11:52 | EKG ---
Test Date: 2024-05-15 Test Time: 15:23:05 Memory Care Program Director: GANGA MEASUREMENT RESULTS: Intervals: Rate: 64 MI: 156 QRSD: 84 QT: 428 QTc: 441 [place]: P: 41 MI: 156 QRS: 2 T: -6 INTERPRETIVE STATEMENTS: Normal sinus rhythm Normal ECG No previous ECG available for comparison Electronically Signed On 05-16-24 11:50:20 CDT by Jam Keith
[2024-05-16] MEDS ORDERED: LIDOCAINE 2% MPF 5 ML VIAL ONE (14:18)
[2024-05-16] MEDS ORDERED: MIDAZOLAM HCL 2 MG/2 ML INJ ONE (14:18)
[2024-05-16] MEDS ORDERED: propofoL 200 MG/20 ML VIAL IV ONE (14:18)
[2024-05-16] MEDS ORDERED: ONDANSETRON 4 MG/2 ML VIAL ONE (14:18)
[2024-05-16] MEDS ORDERED: FENTANYL CITR 100 MCG/2 ML ONE (14:18)
[2024-05-16] MEDS: LIDOCAINE HCL/EPINEPHRINE 20 ML MDV ONE (14:31)
--- NOTE | 2024-05-16 14:33 | P.CNS ---
Date of Consult: 05/16/24 PC: I was asked to see this 63-year-old male regards to the lateral aspect of his left ankle. HPC: Patient states about 5 days ago, he had some type of injury that area. Since then he says his pain and swelling and discomfort in that area. Has opened and drained a little bit of puslike material. PSHx: Previous hip replacement PMHx: Gout Social Hx: No known allergies Sys R: No cough or wheeze. No trouble urinating. No short of breath. O/E: Awake alert vital signs are stable HEENT: Not jaundiced Chest: Chest movement equal bilaterally Abd: Negative [place]: Lateral aspect of the left ankle shows area of what looks like full- thickness skin loss, there is also an area above and below the malleolus that has thick creamy purulent material that is draining. Data: X-ray shows no fracture, no evidence of osteo, ultrasound shows good arterial and venous blood flow Impression: Cutaneous abscess of the left ankle with possible skin loss Plan: I will taken the operating room for a exploration and debridement of this wound of his left ankle. The risks of this procedure were discussed. The possibility of bleeding, infection, need for further surgeries and procedures were explained. Prolonged wound healing sometimes requiring wound vacs and skin grafts were explained. He understands and wants us to proceed.
[2024-05-16] MEDS: Ringers Lactate 1,000 ML IV ONE (14:59)
--- NOTE | 2024-05-16 16:04 | P.OP ---
Preoperative diagnosis: Abscess of the lateral aspect left ankle with full- thickness skin necrosis Postoperative diagnosis: The same Primary procedure: Incision, drainage, and exploration of abscess of the left ankle Secondary procedure: Sharp debridement of left ankle Other procedure(s): Application of wound VAC Anesthesia: General Estimated blood loss: Less than 10 cc Specimen: Necrotic skin, calcified bursa, necrotic debris Operative Technique: The patient brought the operating room and placed supine on the table. After the induction of adequate general anesthesia, attention was turned towards the left lower leg. There was now prepped with a chlorhexidine solution, draped in usual aseptic manner. On inspection we could see that there was a irregular shaped area of full-thickness skin loss over the area of the left lateral malleolus. There also appeared to be a bulge that was very firm and consistent underneath this necrotic skin. The necrotic skin was now sharply debrided using an 11 blade, and the cutting surgical Bovie. The skin was now sent. Underneath this we found a large area that was adherent to this necrotic skin. On cutting it appeared to be layered calcium throughout. This is most likely an old bursa or some other thing that formed underneath the patient's skin. This may have led to the full-thickness tissue loss in this area. The bursa was now debrided from the surrounding tissue. This left us with a large open wound that measures approximately 5-1/2 cm at its longest length top to bottom the width is about 3- 1/2 cm at the lower limit of is a with. It is somewhat irregular triangular- shaped. The skin edges at this point appear viable. We did not aggressively take these back, as we are going to apply a wound VAC and we will need extra length later on to get good closure. The wound VAC was now placed into the base of the wound. The skin having been protected by applying the OpSite barrier to it. The wound sponge was now made to conform to the wound and the other was placed on top of the completing the seal. The suction device was placed on top of the sponge and checked for suction. At this point point the wound and area was injected to ensure adequate hemostasis. This having been ensured, he was sent to the recovery room. My plan is for him the wound VAC to help set up some good granulation tissue, ensure that the area is clean. At that point once we have established some good granulation tissue I think he would benefit from split-thickness skin grafts to help close this, and also to avoid a severe contracture by breaking up in patterning the STSG's. It is possible however that he may require an actual pedicle graft. We will see how the wound progresses. The actual open wound does not appear to actually go into the true ankle joint itself. Complications: None Drain(s): Other (Wound VAC) Transferred to: Recovery Room Condition: Good
--- NOTE | 2024-05-16 16:20 | CON ---
History Of Present Illness: The patient is a 63-year-old male coming in with significant past medica l history of hyperlipidemia and gout with the left lower extremity swelling and tenderness involving the lateral ankle, left lateral aspect of the foot. The patient denies any other symptoms, at this t ar. He was admitted for evaluation and management of cellulitis. His ankle x-ray done in the emerg ency room shows there is a large amount of soft tissue swelling about the ankle. No fracture or disl ocation seen. No MRI or CT scan is available, at this time. Past Medical History: As per HPI. Social History: Nonsmoker. Nondrinker. Family History: Noncontributory. Medications: Doxycycline and Levaquin. See MARs for other medications. Allergies: NO KNOWN DRUG ALLERGIES. Review of Systems: A 10-point review was performed. Physical Examination: General: This is a 63-year-old male, lying in bed, not in any acute cardiopulmonary distress. Vital Signs: Temperature 97, pulse 78, respirations 18, blood pressure 141/61. HEENT: Unremarkable. Neck: Supple. Lungs: Clear to auscultation. Heart: S1, S2. Regular. Abdomen: Soft, nontender. Bowel sounds present. Extremities: Left leg with erythematous changes and increased warmth and tenderness. Laboratory Data: Shows WBC down from 26,000 to 19,000, hemoglobin 11.2, platelets are 301. Chemistr y shows BUN of 24, creatinine 1.3. Elevated liver enzymes including AST and ALT with alkaline phosph atase of 329. Albumin level is 2. Micro data: Blood cultures are pending. Wound cultures from the left ankle shows the patient has 4+ coag positive. Assessment And Plan: 63-year-old male with the significant past medical history of diabetes, gout, a nd hyperlipidemia, coming in with the cellulitis of left leg and ulceration. Consider getting MRI or CT scan of the left foot and ankle, to rule out osteomyelitis. I agree with surgical team evaluatio n. Consider switching patient to vancomycin and Rocephin while in hospital. Can be switched to oral antibiotic if negative for osteomyelitis. Leukocytosis, improving. Renal insufficiency. Elevated liver enzymes. Anemia of chronic disease. We will follow the patient as needed. Thank you, Abigail and Dr. Sung, for consult. NF/MODL Voice ID: [id number] Report ID: [id number]
[2024-05-16] MEDS: HYDROMORPHONE HCL 1 MG/ML INJ ONE ×2 (16:23→16:38)
[2024-05-16] MEDS ORDERED: Levofloxacin 250mg IV 250 MG/50 ML BAG IV SCH (21:00)
[2024-05-16] MEDS: HYDROMORPHONE HCL 0.5 MG/0.5 ML INJ IV PRN (21:09)
[2024-05-17 04:55] LABS: Absolute Lymphocytes (CBC) 1.9 K/uL (0.7-4.9); Absolute Monocytes 1.2 K/uL (0.1-1.3); Absolute Neutrophil 12.6 K/uL (1.8-8.0); Basophils % 0.1 % (0-1.3); Eosinophils % 0.2 % (0-4.4); Hemoglobin 10.9 g/dL (13.6-17.9); Lymphocytes % 12.1 % (15.3-44.8); MCH 31.7 pg (27.0-35.0); MCV 96.1 fL (80-100); MPV 7.4 fL (7.6-11.3); Monocytes % 7.4 % (3.3-12.3); Neutrophils % 80.2 % (41.7-73.7); Platelets 306 thou/uL (152-406); RBC Red Blood Cell Count 3.44 M/uL (4.33-5.43); Red Cell Distribution Width 14.4 % (12.1-15.2)
[2024-05-17 04:58] VITALS: BMI 25.4
[2024-05-17 05:22] LABS: Albumin/Globulin Ratio 0.4 (1.1-1.8); Anion Gap 7.4 mEq/L (5.0-15.0); Bilirubin Total 0.9 mg/dL (0.2-1.0); Potassium 3.4 mEq/L (3.5-5.1)
[2024-05-17] MEDS ORDERED: POTASSIUM CL SA 10 MEQ TAB PO ONE (09:00)
[2024-05-17] MEDS: POTASSIUM 25 MEQ EFFERV TAB PO ONE (09:03)
[2024-05-17] MEDS: HYDROCODONE/APAP 7.5/325 MG TAB PO PRN (12:32)
--- NOTE | 2024-05-17 14:28 | P.PN ---
Date of Service: 05/17/24 tiff nicolas removed wound vac today, moderate bleeding, dressing applied, will discuss with SS HHC, wound vac for home orders, and HHC, PT, SN to arrange wound vac set up reports moderate pain, PRN pain medications dosage increased, educated on SS of prn analgesia, constipation Review of Systems 10-point ROS is otherwise unremarkable as per HPI Physical Examination - Physical Exam General: Alert, In no apparent distress, Oriented x3 HEENT: Atraumatic, Normocephalic, PERRLA Neck: 2+ carotid pulse no bruit, JVD not distended Respiratory: Clear to auscultation bilaterally, Normal air movement Cardiovascular: Other (Left lower extremity cellulitis,), Edema Capillary refill: <2 Seconds Gastrointestinal: Normal bowel sounds, Soft and benign Musculoskeletal: Other (Left lower extremity weakness, left lower extremity cellulitis, dry dressing LLE, Integumentary: Other (, left lateral ankle, cellulitis, left foot lateral wound) Neurological: Normal speech, Normal strength at 5/5 x4 extr, Sensation intact Assessment and Plan - Problems (Diagnosis) (1) Cellulitis of left lower extremity Current Visit: Yes Status: Acute (2) Diabetic ulcer of left ankle Current Visit: Yes Status: Acute Hemoglobin A1c 6.1 (3) Gout Current Visit: Yes Status: Acute Pending uric acid level (4) Hyperlipidemia Current Visit: Yes Status: Acute Lipid panel within normal limits (5) SIRS (systemic inflammatory response syndrome) Current Visit: Yes Status: Acute (6) Lactic acidosis Current Visit: Yes Status: Acute (7) transaminitis trending down, trend liver enzyme - Plan Assessment plan Admit to [facility] 05/16 S/P ID Dr. Borja consented to drainage and exploration of the abscess of the left ankle IV antibiotics, IV p.o. as needed analgesics, ID consult- Trend lactic, WBCs, gout, wound cultures, hemoglobin A1c, lipid panel in the a.m. Wound care left lower extremity per surgery team Left lower extremity Doppler ultrasound rule out DVT, left lower extremity arterial ultrasound evaluate for blood supply Venous Doppler no IMPRESSION: There is no deep vein or superficial vein thrombosis. Arterial Doppler No significant flow abnormality detected. Nursing to Doppler pulses q. shift PT to eval for DME needs, gait training SS to arrange HHC, SN, Wound care, Wound vac, PT at discharge. Hyperlipidemia, gout, resume appropriate home medications nursing to enter home meds Full code Diabetic diet Disposition pending hospital course, HHC, wound care, SN, PT at discharge Discharge Plan: Home - Advance Directives Does patient have a Living Will: No Does patient have a Durable POA for Healthcare: No - Code Status/Comfort Care Code Status: Full Code Critical Care: No Time Spent Managing Pts Care (In Minutes): 35
[2024-05-18 07:05] LABS: Absolute Basophils 0.1 K/uL (0-0.5); Absolute Eosinophils 0.1 K/uL (0-0.5); Absolute Lymphocytes (CBC) 1.5 K/uL (0.7-4.9); Absolute Neutrophil 11.8 K/uL (1.8-8.0); Basophils % 0.4 % (0-1.3); Eosinophils % 0.5 % (0-4.4); Hematocrit 33.5 % (39.6-49.0); Hemoglobin 11.3 g/dL (13.6-17.9); Lymphocytes % 10.7 % (15.3-44.8); MCH 32.1 pg (27.0-35.0); MCHC 33.9 g/dL (32.0-36.0); MCV 94.7 fL (80-100); Monocytes % 6.8 % (3.3-12.3); Neutrophils % 81.6 % (41.7-73.7); Platelets 363 thou/uL (152-406); RBC Red Blood Cell Count 3.53 M/uL (4.33-5.43); Red Cell Distribution Width 14.2 % (12.1-15.2)
[2024-05-18 07:25] LABS: Albumin 2.1 g/dL (3.4-5.0); Albumin/Globulin Ratio 0.4 (1.1-1.8); Anion Gap 9.3 mEq/L (5.0-15.0); Bilirubin Total 0.6 mg/dL (0.2-1.0); Globulin 5.4 g/dL (2.3-3.5); Potassium 3.3 mEq/L (3.5-5.1); Protein, Total 7.5 g/dL (6.4-8.2)
--- NOTE | 2024-05-18 09:29 | P.DS ---
Admission Date: 05/15/24 Discharge Date: 05/20/24 Reason for Admission: Left lower extremity cellulitis, left ankle wound - Problems (1) Foot ulceration Current Visit: Yes Status: Acute (2) Cellulitis of left lower extremity Current Visit: No Status: Acute (3) Gout Current Visit: No Status: Acute (4) Hyperlipidemia Current Visit: No Status: Acute (5) SIRS (systemic inflammatory response syndrome) Current Visit: No Status: Acute (6) Foot abscess Current Visit: No Status: Acute (7) Lactic acidosis Current Visit: No Status: Acute (8) Transaminitis Current Visit: Yes Status: Acute Brief History of Present Illness: 63-year-old male with a past medical history of gout, hyperlipidemia, presents to the emergency room with left lower extremity swelling. He reports left lower extremity lateral ankle, left lateral aspect of the dorsum of the left foot. He reports chills, no reported fever, no reported nausea vomiting chest pain wound started 5 days ago After working in the yard. HPI limited, no family in the room during exam. He denies history of diabetes, he reports history of gout, plan to admit for left lower extremity cellulitis, left lower extremity lateral ankle, foot wound, Dr. Borja for surgery to consult. Migue harkins spoke with physician in the emergency room prior to admitting. Dr. Borja agreed to accept patient. - Physical Exam General: Alert, In no apparent distress, Oriented x3 HEENT: Atraumatic, Normocephalic, PERRLA Neck: 2+ carotid pulse no bruit, JVD not distended Respiratory: Clear to auscultation bilaterally, Normal air movement Cardiovascular: Other (Left lower extremity cellulitis,), Edema Capillary refill: <2 Seconds Gastrointestinal: Normal bowel sounds, Soft and benign Musculoskeletal: Other (Left lower extremity weakness, left lower extremity cellulitis, dry dressing LLE, Integumentary: Other (, left lateral ankle, cellulitis, left foot lateral wound) Neurological: Normal speech, Normal strength at 5/5 x4 extr, Sensation intact Hospital Course: 63-year-old male with a past medical history of gout, hyperlipidemia, presents to the emergency room with left lower extremity swelling. He reports left lower extremity lateral ankle, left lateral aspect of the dorsum of the left foot. He reports chills, no reported fever, no reported nausea vomiting chest pain wound started 5 days ago After working in the yard. HPI limited, no family in the room during exam. He denies history of diabetes, he reports history of gout, plan to admit for left lower extremity cellulitis, left lower extremity lateral ankle, foot wound, Dr. Borja for surgery to consult. Migue harkins spoke with physician in the emergency room prior to admitting. Dr. Borja agreed to accept patient. Mr. Gómez is a status post incision and drainage 0 S/P ID Dr. Borja consented to drainage and exploration of the abscess of the left ankle. Order for a VAC pack dressing, home health health care ordered, patient ambulated with physical therapy with a rolling walker prior to discharge educated on safe transfers. Is tolerating diet is stable to discharge, follow- up with Dr. Borja in the wound clinic, discharge home with home health for dressing changes Discharge medication P.o. antibiotics take until finished as prescribed P.o. analgesia take as directed No driving or operating heavy equipment while on as needed analgesics Directed to monitor for signs symptom of infection, call surgery to schedule follow-up appointment. Instructed her/educated on signs and symptoms of pain medications causes constipation, patient verbalized understand, take as needed stool softener Wound cultures positive for Staph aureus Discharge home with [facility] home health, for wound VAC, wound care, dressing changes, shelter, PT, Dr. Borja orders Wound VAC to 120 mmHg continuous suction. Wound may be changed in 48 hours time. Transaminitis ast 44->717->153-78 alt 118->387->226-152 Alk phos 329->737->480->370 hepatitis panel pending liver US Mild coarsened echotexture of the liver could reflect changes of cirrhosis. No focal mass. Gallbladder is unremarkable. No biliary duct dilatation Needs to follow-up with GI, hepatology after discharge possible liver biopsy Continue home medicines as previously prescribed GOAL: Clear understanding of disease process INSTRUCTIONS: Physician Discharge Instructions: -Follow up with GI, hepatology after discharge -Follow-up with Dr. Borja, follow-up with wound clinic for wound evaluation -Follow-up with PCP in 1 to 2 weeks -Please call Dr. Sung at [phone] if any questions regarding hospital stay -Please call nursing station at [phone] if any nursing or medication questions -Return to the emergency room if symptoms worsen Diet: ADA, low sodium Activity: Fall precautions <Abigail العراقي - Last Filed: 05/20/24 11:43> Admission Date: 05/15/24 Discharge Date: 05/22/24 <Rosemarie Fournier - Last Filed: 05/22/24 08:50> Disposition: DC HOME/HOME HEALTH CARE Discharge Condition: FAIR Vital Signs/Physical Exam: Temp Pulse Resp BP Pulse Ox 98.0 F 72 18 111/58 L 95 05/18/24 08:00 05/18/24 08:00 05/18/24 08:00 05/18/24 08:00 05/18/24 08:00 Laboratory Data at Discharge: WBC 14.50 thou/uL (4.3-10.9) H 05/18/24 06:41 Hgb 11.3 g/dL (13.6-17.9) L 05/18/24 06:41 Hct 33.5 % (39.6-49.0) L 05/18/24 06:41 Plt Count 363 thou/uL (152-406) 05/18/24 06:41 PT 10.8 SECONDS (9.4-12.5) 05/15/24 15:35 INR 0.96 05/15/24 15:35 APTT 39.7 SECONDS (24.3-36.9) H 05/15/24 15:35 Sodium 139 mEq/L (136-145) 05/18/24 06:41 Potassium 3.3 mEq/L (3.5-5.1) L 05/18/24 06:41 BUN 23 mg/dL (7-18) H 05/18/24 06:41 Creatinine 1.22 mg/dL (0.70-1.30) 05/18/24 06:41 Glucose 90 mg/dL (74-106) 05/18/24 06:41 Uric Acid 4.4 mg/dL (3.5-7.2) 05/16/24 08:26 Magnesium 2.0 mg/dL (1.6-2.4) 05/18/24 06:41 Total Bilirubin 0.6 mg/dL (0.2-1.0) 05/18/24 06:41 AST 153 U/L (15-37) H 05/18/24 06:41 ALT 226 U/L (16-61) H 05/18/24 06:41 Alkaline Phosphatase 480 U/L (45-117) H D 05/18/24 06:41 Triglycerides 187 mg/dL (<150) H 05/16/24 08:26 Cholesterol 158 mg/dL (<200) 05/16/24 08:26 HDL Cholesterol 42 mg/dL (40-60) 05/16/24 08:26 Cholesterol/HDL Ratio 3.76 05/16/24 08:26 <Abigail العراقي - Last Filed: 05/20/24 11:43> Vital Signs/Physical Exam: Temp Pulse Resp BP Pulse Ox 97.0 F 85 20 114/70 90 L 05/22/24 08:00 05/22/24 08:00 05/22/24 08:00 05/22/24 08:00 05/22/24 08:00 General: Alert, In no apparent distress HEENT: Atraumatic, Normocephalic Neck: Supple Respiratory: Clear to auscultation bilaterally Cardiovascular: No edema, Normal pulses Capillary refill: <2 Seconds Gastrointestinal: Normal bowel sounds Musculoskeletal: No clubbing, Other (left elbow had become erythematous and edematous, US neg, full ROM. Suspected gout. Improved dramatically with colchicine and prednisone) Integumentary: Other (left lateral ankle and heel re-eval per Dr. Borja and seen per Dr. Jolly as well. Clean, dry, and intact bandage on for now for transport home and is set up to place wound vac in pt's discharge supplies) Neurological: Normal speech, Normal tone, Normal affect Lymphatics: No axilla or inguinal lymphadenopathy External genitalia: Deferred Rectal: Deferred Laboratory Data at Discharge: WBC 9.40 thou/uL (4.3-10.9) 05/20/24 07:26 Hgb 10.9 g/dL (13.6-17.9) L 05/20/24 07:26 Hct 31.8 % (39.6-49.0) L 05/20/24 07:26 Plt Count 462 thou/uL (152-406) H 05/20/24 07:26 PT 10.8 SECONDS (9.4-12.5) 05/15/24 15:35 INR 0.96 05/15/24 15:35 APTT 39.7 SECONDS (24.3-36.9) H 05/15/24 15:35 Sodium 139 mEq/L (136-145) 05/20/24 07:26 Potassium 3.7 mEq/L (3.5-5.1) 05/20/24 07:26 BUN 18 mg/dL (7-18) 05/20/24 07:26 Creatinine 1.09 mg/dL (0.70-1.30) 05/20/24 07:26 Glucose 99 mg/dL (74-106) 05/20/24 07:26 Uric Acid 4.4 mg/dL (3.5-7.2) 05/16/24 08:26 Phosphorus 3.5 mg/dL (2.5-4.9) 05/20/24 07:26 Magnesium 1.9 mg/dL (1.6-2.4) 05/20/24 07:26 Total Bilirubin 0.5 mg/dL (0.2-1.0) 05/20/24 07:26 AST 69 U/L (15-37) H 05/20/24 07:26 ALT 124 U/L (16-61) H 05/20/24 07:26 Alkaline Phosphatase 318 U/L (45-117) H 05/20/24 07:26 Triglycerides 187 mg/dL (<150) H 05/16/24 08:26 Cholesterol 158 mg/dL (<200) 05/16/24 08:26 HDL Cholesterol 42 mg/dL (40-60) 05/16/24 08:26 Cholesterol/HDL Ratio 3.76 05/16/24 08:26 <Rosemarie Fournier - Last Filed: 05/22/24 08:50> <Abigail العراقي - Last Filed: 05/20/24 11:43> Diet: Low sodium Activity: Ad lyle <Rosemarie Fournier - Last Filed: 05/22/24 08:50> Home Medications: Allopurinol 300 mg PO DAILY 05/15/24 Ezetimibe/Rosuvastatin Calcium [Rosuvastatin-Ezetimibe 40-10Mg] 40 mg PO BEDTIME 05/15/24 Indomethacin [Indomethacin ER] 75 mg PO BID PRN 05/15/24 Physician Discharge Instructions: 63-year-old male with a past medical history of gout, hyperlipidemia, presents to the emergency room with left lower extremity swelling. He reports left lower extremity lateral ankle, left lateral aspect of the dorsum of the left foot. He reports chills, no reported fever, no reported nausea vomiting chest pain wound started 5 days ago After working in the yard. HPI limited, no family in the room during exam. He denies history of diabetes, he reports history of gout, plan to admit for left lower extremity cellulitis, left lower extremity lateral ankle, foot wound, Dr. Borja for surgery to consult. Migue harkins spoke with physician in the emergency room prior to admitting. Dr. Borja agreed to accept patient. Mr. Gómez is a status post incision and drainage S/P ID Dr. Borja consented to drainage and exploration of the abscess of the left ankle. Order for a VAC pack dressing, home health health care ordered, patient ambulated with physical therapy with a rolling walker prior to discharge educated on safe transfers. Is tolerating diet is stable to discharge, follow- up with Dr. Borja in the wound clinic, discharge home with [facility] for dressing changes Assessment Foot ulcer, status [id number] with wound clinic after discharge Cellulitis of the lower extremity, negative for DVT Severe sepsis improved with IV antibiotics, Lactic acidosis improving antibiotics, discharged home on p.o. interval Transaminitis, follow-up with GI, hepatology after discharge for elevated liver Gout stable (left elbow) Hyperlipidemia resume antilipids after the Discharge medication P.o. antibiotics take until finished as prescribed P.o. analgesia take as directed No driving or operating heavy equipment while on as needed analgesics Directed to monitor for signs symptom of infection, call surgery to schedule follow-up appointment. Instructed her/educated on signs and symptoms of pain medications causes constipation, patient verbalized understand, take as needed stool softener Wound cultures positive for Staph aureus Discharge home with [facility], for wound VAC, wound care, dressing changes, shelter, PT, Dr. Borja orders Wound VAC to 120 mmHg continuous suction. Wound may be changed in 48 hours time. transaminitis ast 44->717->153-78-> 69 alt 118->387->226-152-> 124 Alk phos 329->737->480->370 -> 318 hepatitis panel negative liver US Mild coarsened echotexture of the liver could reflect changes of cirrhosis. No focal mass. Gallbladder is unremarkable. No biliary duct dilatation Needs to follow-up with GI, hepatology after discharge possible liver biopsy Continue home medicines as previously prescribed GOAL: Clear understanding of disease process INSTRUCTIONS: Physician Discharge Instructions: -Follow-up with Dr. Borja, follow-up with wound clinic for wound evaluation -Follow-up with PCP in 1 to 2 weeks -Please call Dr. Sung at [phone] if any questions regarding hospital stay -Please call nursing station at [phone] if any nursing or medication questions -Return to the emergency room if symptoms worsen Diet: ADA, low sodium Activity: Fall precautions Followup: Robin Borja MD [ACTIVE - CAN ADMIT] - 1-2 Weeks Mary Ann Hernandez MD [Primary Care Provider] - 1-2 Weeks Marino Rios MD [ASSOCIATE-ACTIVE - CAN ADMIT] - 1-2 Weeks
[2024-05-18] MEDS: POTASSIUM CL SA 10 MEQ TAB PO ONE (10:19)
--- NOTE | 2024-05-18 22:39 | P.PN ---
Date of Service: 05/18/24 subjective HHC, arranged wound vac for home orders, and HHC, PT, SN to arrange wound vac set up ambulating w RW a assistance Review of Systems 10-point ROS is otherwise unremarkable as per HPI Physical Examination - Physical Exam General: Alert, In no apparent distress, afebrile HEENT: Atraumatic, Normocephalic, PERRLA Neck: 2+ carotid pulse no bruit, JVD not distended Respiratory: Clear to auscultation bilaterally, Normal air movement Cardiovascular: Other (Left lower extremity cellulitis,), Edema Capillary refill: <2 Seconds Gastrointestinal: Normal bowel sounds, Soft and benign Musculoskeletal: Other (Left lower extremity weakness, left lower extremity cellulitis, wound vac in place Integumentary: Other (, left lateral ankle, cellulitis, left foot lateral wound) Neurological: Normal speech, Normal strength at 5/5 x4 extr, Sensation intact Assessment and Plan - Problems (Diagnosis) (1) Cellulitis of left lower extremity improving Current Visit: Yes Status: Acute (2) Diabetic ulcer of left ankle Current Visit: Yes Status: Acute Hemoglobin A1c 6.1 (3) Gout Current Visit: Yes Status: Acute Pending uric acid level (4) Hyperlipidemia Current Visit: Yes Status: Acute Lipid panel within normal limits (5) SIRS (systemic inflammatory response syndrome) improving Current Visit: Yes Status: Acute (6) Lactic acidosis Current Visit: Yes Status: Acute (7) transaminitis trending down, trend liver enzyme - Plan Assessment plan Admit to [facility] 05/16 S/P ID Dr. Borja consented to drainage and exploration of the abscess of the left ankle IV antibiotics, IV p.o. as needed analgesics, ID consult-levaquin, doxycycline Trend lactic, WBCs, gout, wound cultures, hemoglobin A1c, lipid panel in the a.m. Wound care left lower extremity per surgery team Left lower extremity Doppler ultrasound rule out DVT, left lower extremity arterial ultrasound evaluate for blood supply Venous Doppler no IMPRESSION: There is no deep vein or superficial vein thrombosis. Arterial Doppler No significant flow abnormality detected. PT to eval for DME needs, gait training SS to arrange HHC, SN, Wound care, Wound vac, PT at discharge. microcytic anemia tremd hh, 12.5->11.2->11.3 transamanitis ast 44->717->153 alt 118->387->226 hepatitis panel liver US Hyperlipidemia, gout, resume appropriate home medications nursing to enter home meds Full code Diabetic diet Disposition pending hospital course, HHC, wound care, SN, PT at discharge Discharge Plan: Home - Advance Directives Does patient have a Living Will: No Does patient have a Durable POA for Healthcare: No - Code Status/Comfort Care Code Status: Full Code Critical Care: No Time Spent Managing Pts Care (In Minutes): 35
--- NOTE | 2024-05-19 06:51 | RAD REPORT ---
Liver Only: 05/19/2024 6:28 AM CLINICAL HISTORY: elevated lft STUDY: Limited right upper quadrant ultrasound of abdomen. COMPARISON: None. FINDINGS: Liver: Mildly coarsened echotexture. No focal mass. Bile ducts: No intrahepatic or extrahepatic biliary dilatation. Common bile duct measures 3 mm. Gallbladder: Normal. IMPRESSION: Mild coarsened echotexture of the liver could reflect changes of cirrhosis. No focal mass. Gallbladde r is unremarkable. No biliary duct dilatation.
[2024-05-19 07:14] LABS: Absolute Lymphocytes (CBC) 1.3 K/uL (0.7-4.9); Absolute Monocytes 0.8 K/uL (0.1-1.3); Absolute Neutrophil 8.6 K/uL (1.8-8.0); Basophils % 0.3 % (0-1.3); Eosinophils % 0.5 % (0-4.4); Hematocrit 31.7 % (39.6-49.0); Hemoglobin 10.7 g/dL (13.6-17.9); Lymphocytes % 12.1 % (15.3-44.8); MCH 32.3 pg (27.0-35.0); MCHC 33.8 g/dL (32.0-36.0); MCV 95.4 fL (80-100); MPV 6.8 fL (7.6-11.3); Monocytes % 7.1 % (3.3-12.3); Platelets 367 thou/uL (152-406); RBC Red Blood Cell Count 3.33 M/uL (4.33-5.43); Red Cell Distribution Width 14.2 % (12.1-15.2)
[2024-05-19 07:36] LABS: Albumin/Globulin Ratio 0.4 (1.1-1.8); Anion Gap 9.6 mEq/L (5.0-15.0); Bilirubin Total 0.5 mg/dL (0.2-1.0); Globulin 5.4 g/dL (2.3-3.5); Magnesium 1.8 mg/dL (1.6-2.4); Potassium 3.6 mEq/L (3.5-5.1); Protein, Total 7.4 g/dL (6.4-8.2)
--- NOTE | 2024-05-19 09:10 | P.PN ---
Date of Service: 05/19/24 subjective pain controlled with prn analgesia Review of Systems 10-point ROS is otherwise unremarkable as per HPI Physical Examination - Physical Exam General: AOx3 In no apparent distress, afebrile HEENT: Atraumatic, Normocephalic, PERRLA Respiratory: Clear to auscultation bilaterally, unlabored Cardiovascular: Other (Left lower extremity cellulitis,), Edema, Capillary refill: <2 Seconds Gastrointestinal: Normal bowel sounds, Soft and benign Musculoskeletal: Other (Left lower extremity weakness, left lower extremity cellulitis, wound vac in place Integumentary: Other (, left lateral ankle, cellulitis, left foot lateral wound) Neurological: Normal speech, Normal strength at 5/5 x4 extr, Sensation intact Assessment and Plan - Problems (Diagnosis) Cellulitis of left lower extremity improving Current Visit: Yes Status: Acute ulcer of left ankle Abscess of the left ankle Current Visit: Yes Status: Acute Hemoglobin A1c 6.1 diabetes ruled out (not DM ulcer) HX Gout Current Visit: Yes Status: Acute uric acid level normal ruled out Hyperlipidemia Current Visit: Yes Status: Acute Lipid panel within normal limits SIRS (systemic inflammatory response syndrome) improving Current Visit: Yes Status: Acute Lactic acidosis resolved Current Visit: Yes Status: Acute transaminitis trending down, trend liver enzyme Will need to follow-up with GI after discharge Ultrasound, hepatitis panel ordered - Plan Assessment plan Admit to [facility] 05/16 S/P ID Dr. Borja consented to drainage and exploration of the abscess of the left ankle IV antibiotics, IV p.o. as needed analgesics, ID consult-levaquin, doxycycline Trend lactic, WBCs, gout, wound cultures, hemoglobin A1c, lipid panel in the a.m. Wound care left lower extremity per surgery team Left lower extremity Doppler ultrasound rule out DVT, left lower extremity arterial ultrasound evaluate for blood supply Venous Doppler no IMPRESSION: There is no deep vein or superficial vein thrombosis. Arterial Doppler No significant flow abnormality detected. PT to eval for DME needs, gait training SS to arrange HHC, SN, Wound care, Wound vac, PT at discharge. microcytic anemia tremd hh, 12.5->11.2->11.3 transamanitis improving ast 44->717->153-78-69 alt 118->387->226-152-124 Alk phos 329->737->480->370-318 hepatitis panel nonreactive liver US Mild coarsened echotexture of the liver could reflect changes of cirrhosis. No focal mass. Gallbladder is unremarkable. No biliary duct dilatation Needs to follow-up with GI, hepatology after discharge possible liver biopsy Hyperlipidemia, gout, resume appropriate home medications nursing to enter home meds Full code Diabetic diet Disposition pending hospital course, HHC, wound care, SN, PT at discharge Discharge Plan: Home - Advance Directives Does patient have a Living Will: No Does patient have a Durable POA for Healthcare: No - Code Status/Comfort Care Code Status: Full Code Critical Care: No Time Spent Managing Pts Care (In Minutes): 30
[2024-05-19] MEDS: POTASSIUM 25 MEQ EFFERV TAB PO ONE (11:46)
[2024-05-20 04:39] LABS: Hepatitis B Core IgM Nonreactive (Nonreactive); Hepatitis B surface AG Interp. Nonreactive (Nonreactive); Hepatitis C Virus Ab Nonreactive (Nonreactive)
[2024-05-20 04:40] LABS: HBsAG Nonreactive Report Report
[2024-05-20 07:37] LABS: Absolute Eosinophils 0.1 K/uL (0-0.5); Absolute Lymphocytes (CBC) 1.5 K/uL (0.7-4.9); Absolute Monocytes 0.6 K/uL (0.1-1.3); Absolute Neutrophil 7.3 K/uL (1.8-8.0); Basophils % 0.3 % (0-1.3); Eosinophils % 0.7 % (0-4.4); Hematocrit 31.8 % (39.6-49.0); Hemoglobin 10.9 g/dL (13.6-17.9); Lymphocytes % 15.6 % (15.3-44.8); MCH 32.2 pg (27.0-35.0); MCHC 34.3 g/dL (32.0-36.0); MCV 93.9 fL (80-100); MPV 6.4 fL (7.6-11.3); Neutrophils % 77.4 % (41.7-73.7); Nucleated Red Blood Cells % 0.1 % (0-0); Platelets 462 thou/uL (152-406); RBC Red Blood Cell Count 3.39 M/uL (4.33-5.43); Red Cell Distribution Width 13.8 % (12.1-15.2)
[2024-05-20 07:51] LABS: Albumin/Globulin Ratio 0.4 (1.1-1.8); Anion Gap 6.7 mEq/L (5.0-15.0); Bilirubin Total 0.5 mg/dL (0.2-1.0); Globulin 5.6 g/dL (2.3-3.5); Magnesium 1.9 mg/dL (1.6-2.4); Phosphorus 3.5 mg/dL (2.5-4.9); Potassium 3.7 mEq/L (3.5-5.1); Protein, Total 7.6 g/dL (6.4-8.2)
--- NOTE | 2024-05-20 11:00 | P.PN ---
Subjective Date of Service: 05/20/24 Chief Complaint: Left lower extremity cellulitis, left ankle wound Subjective: No new changes Review of Systems 10-point ROS is otherwise unremarkable General: Unremarkable Eyes: Unremarkable ENT: Unremarkable Respiratory: Unremarkable Cardiovascular: Unremarkable Gastrointestinal: Unremarkable Genitourinary: Unremarkable Musculoskeletal: Foot Pain Integumentary: As per HPI Neurological: Unremarkable Lymphatics: Unremarkable Physical Examination - Vital Signs Temperature: 97.9 F Blood Pressure: 128/60 Pulse: 76 Respirations: 15 Pulse Ox (%): 93 - Physical Exam General: Alert, Oriented x3, Mild distress HEENT: Atraumatic, Normocephalic Neck: Supple Respiratory: Normal air movement Cardiovascular: Regular rate/rhythm Capillary refill: <2 Seconds Gastrointestinal: Soft and benign Musculoskeletal: No clubbing, No swelling Integumentary: No breakdown, Other (wound vac to left lateral ankle as described in assessment/plan) Neurological: Normal speech, Normal tone, Normal affect Lymphatics: No axilla or inguinal lymphadenopathy External genitalia: Deferred Rectal: Deferred Assessment And Plan - Plan Assessment and Plan - Problems (Diagnosis) (1) Cellulitis of left lower extremity Current Visit: Yes Status: Acute (2) Diabetic ulcer of left ankle Current Visit: Yes Status: Acute (3) Gout Current Visit: Yes Status: Acute (4) Hyperlipidemia Current Visit: Yes Status: Acute (5) SIRS (systemic inflammatory response syndrome) Current Visit: Yes Status: Acute (6) Lactic acidosis Current Visit: Yes Status: Acute - Plan Assessment plan Admit to MedSurg IV antibiotics, IV p.o. as needed analgesics, Trend lactic, WBCs, gout, wound cultures, hemoglobin A1c, lipid panel in the a.m. Wound care left lower extremity per surgery team Left lower extremity Doppler ultrasound rule out DVT, left lower extremity arterial ultrasound evaluate for blood supply Nursing to Doppler pulses q. shift Hyperlipidemia, gout, resume appropriate home medications nursing to enter home meds PT to eval for DME needs, gait training Full code Diabetic diet Disposition pending hospital course 05/20/24 pt would like w/c for home, will discuss with ss c/o significant pain when left foot dependent left foot with lightening to metatarsal/toe area, will repeat doppler study as it was performed one week ago prior to surgery left lateral area of malleolus with wound vac over a wound measured in surgery as 5.5cm x 3.5cm in inverted triangular shape. + serosanguinous discharge in tubing and 75% of sponge is saturated inside the container Discharge Plan: Home - Advance Directives Does patient have a Living Will: No Does patient have a Durable POA for Healthcare: No - Code Status/Comfort Care Code Status: Full Code Critical Care: No - Code Status/Comfort Care Code Status Assessed: Yes (Full)
--- NOTE | 2024-05-21 07:50 | RAD REPORT ---
EXAMINATION:Lower Extremity Artery Uni Ltd CLINICAL INDICATION: Male, 63 years old. distal foot discoloration and increased pain TECHNIQUE: Arterial duplex ultrasound was performed of the left lower extremity with real-time, color -flow, and spectral wave Doppler evaluation. Ankle brachial indices were not performed. COMPARISON: 05/15/2024 FINDINGS: Mild plaque throughout the evaluated arterial system. Triphasic waveforms are seen in the left common femoral artery. Left superficial femoral artery to dorsalis pedis demonstrates monophasic waveform.No occlusion seen. IMPRESSION: From the level of the distal SFA inferiorly there are monophasic waveforms present. This likely indic ates mild stenosis at the level of the distal left SFA. No complete occlusion seen.
--- NOTE | 2024-05-21 07:51 | RAD REPORT ---
EXAMINATION: US LEFT UPPER EXTREMITY VENOUS DOPPLER CLINICAL INDICATION: [facility] MAIN redness, swelling TECHNIQUE: Complete bilateral duplex sonography of the LEFT upper extremity veins was performed. The examination included compression for vein patency, color Doppler imaging and flow augmentation in response to distal compression of the internal jugular, brachiocephalic, subclavian, axillary, brachi al, radial, ulnar, cephalic and basilic veins. COMPARISON: 05/15/2024 FINDINGS: Duplex sonography testing of the veins of the LEFT upper extremity was performed. Color flow imaging shows all veins to be compressible with [id number] color filling. Pulsatile and phasic flow is present within all upper extremity deep and superficial veins examined. IMPRESSION: There is no deep vein or superficial vein thrombosis.
[2024-05-21] MEDS: METHYLPREDNISOLONE 125 MG INJ IV ONE (12:48)
[2024-05-21] MEDS: COLCHICINE 0.6 MG TAB PO ONE (12:48)
--- NOTE | 2024-05-21 16:11 | P.PN ---
Date of Service: 05/21/24 S: Patient is no specific complaints today, anxious to go home. O: Wound VAC was taken down. We can see the base of the wound. There is good signs of granulation tissue. No evidence of infection. There was a small collection of fluid that had underneath a piece of loose skin near the sole of his foot. No other infection noted. AA: Patient responding well status post wide excision and debridement of necrotic tissue from lateral aspect of left ankle. P: We will see the patient in the wound care center next week. At that time we will evaluate whether or not there is adequate granulation tissue and bony coverage for a possible split thickness skin graft to this area from a suitable donor site. This will enable us to close this wound quickly and hopefully prevent a wound contracture as this wound gradually closes. He is being discharged today to home health.
--- NOTE | 2024-05-21 16:40 | PN ---
Subjective: The patient is lying in bed, status post surgical debridement, currently being treated w ith wound VAC and antibiotic. The patient denies any headache, nausea, vomiting, chest pain, abdomin al pain, constipation, or diarrhea. Objective: Vital Signs: Temperature 98, pulse 83, respirations 18, blood pressure 106/55. Lungs: Basal crackles. Heart: S1, S2. Regular. Abdomen: Soft, nontender. Bowel sounds present. Extremities: Left foot with erythematous changes decreased. Debridement area shows 10% of slough an d biofilm. There is a concern regarding the heel, which has erythematous changes and a blister forma tion. Laboratory Data: Cultures are growing Staphylococcus aureus. Patient is currently being treated with Levaquin. Assessment And Plan: Left ankle osteomyelitis versus cellulitis. Consider getting a CT scan of the ankle done on foot region. Diabetes mellitus, history of gout. Leukocytosis has improved. Anemia o f chronic disease. Moderate protein-calorie malnourishment. We will follow the patient as needed. NF/MODL Voice ID: [id number] Report ID: [id number]
[2024-05-21 21:10] VITALS: O2SAT 94
[2024-05-22] MEDS: COLCHICINE 0.6 MG TAB PO SCH (09:00)
[2024-05-22] MEDS: METHYLPREDNISOLONE 40 MG INJ IV ONE (09:01)
[2024-05-22] MEDS: COLCHICINE 0.6 MG TAB PO ONE (09:01)
[2024-05-22] MEDS: allopurinoL 300 MG TAB PO SCH (09:02)
[2024-05-22 12:37] VITALS: BP 96/59; TEMP 97.5
--- NOTE | 2024-05-22 16:57 | P.PN ---
Subjective Date of Service: 05/22/24 Chief Complaint: Left lower extremity cellulitis, left ankle wound left lateral ankle with improvement per Dr. Borja, Pt's left elbow with full ROM but with swelling, warmth, and tenderness. Will try prednisone and colchicine to see if any rapid improvement in elbow s/s. Pt Blood cultures negative Review of Systems 10-point ROS is otherwise unremarkable General: Unremarkable Eyes: Unremarkable ENT: Unremarkable Respiratory: Unremarkable Cardiovascular: Unremarkable Gastrointestinal: Unremarkable Genitourinary: Unremarkable Musculoskeletal: Other (left lower leg/ankle pain with wound vac off presently. will go home with wound vac placement per . Left elbow hot, red, + rom, recent US negative for DVT) Integumentary: As per HPI (improving with granulation tissue) Neurological: Unremarkable Lymphatics: Unremarkable Physical Examination - Vital Signs Temperature: 97.5 F Blood Pressure: 96/59 Pulse: 94 Respirations: 18 Pulse Ox (%): 92 - Physical Exam General: Alert, In no apparent distress, Oriented x3 HEENT: Atraumatic, Normocephalic Neck: Supple Respiratory: Clear to auscultation bilaterally Cardiovascular: No edema, Normal pulses, Regular rate/rhythm Capillary refill: <2 Seconds Gastrointestinal: Soft and benign Musculoskeletal: Other (left lower leg/ankle pain with wound vac off presently. will go home with wound vac placement per . Left elbow hot, red, + rom, recent US negative for DVT) Integumentary: Other (as noted above) Neurological: Normal speech, Sensation intact, Normal affect Lymphatics: No axilla or inguinal lymphadenopathy External genitalia: Deferred Rectal: Deferred Assessment And Plan - Plan Assessment and Plan - Problems (Diagnosis) (1) Cellulitis of left lower extremity Current Visit: Yes Status: Acute (2) Diabetic ulcer of left ankle Current Visit: Yes Status: Acute (3) Gout Current Visit: Yes Status: Acute 05/21/24 - left elbow (4) Hyperlipidemia Current Visit: Yes Status: Acute (5) SIRS (systemic inflammatory response syndrome) Current Visit: Yes Status: Acute (6) Lactic acidosis Current Visit: Yes Status: Acute - Plan Assessment plan Admit to MedSurg IV antibiotics, IV p.o. as needed analgesics, Trend lactic, WBCs, gout, wound cultures, hemoglobin A1c, lipid panel in the a.m. Wound care left lower extremity per surgery team Left lower extremity Doppler ultrasound rule out DVT, left lower extremity arterial ultrasound evaluate for blood supply Nursing to Doppler pulses q. shift Hyperlipidemia, gout, resume appropriate home medications nursing to enter home meds PT to eval for DME needs, gait training Full code Diabetic diet Disposition pending hospital course 05/20/24 pt would like w/c for home, will discuss with ss c/o significant pain when left foot dependent left foot with lightening to metatarsal/toe area, will repeat doppler study as it was performed one week ago prior to surgery left lateral area of malleolus with wound vac over a wound measured in surgery as 5.5cm x 3.5cm in inverted triangular shape. + serosanguinous discharge in tubing and 75% of sponge is saturated inside the container left elbow swollen, warm, and erythematous, US of left upper ext negative for DV T 05/21/[address] Borja with improvement and wound granulation starting Colchicine 0.6mg and prednisone given to see if significant, rapid improvement blood cultures negative Discharge Plan: Home - Advance Directives Does patient have a Living Will: No Does patient have a Durable POA for Healthcare: No - Code Status/Comfort Care Code Status: Full Code Critical Care: No Discharge Plan: Home Plan to discharge in: 24 Hours - Code Status/Comfort Care Code Status Assessed: Yes (Full) Time Spent Managing PTS Care (In Minutes): 35
[2024-05-22] MEDS ORDERED: predniSONE 20 MG TAB PO SCH (21:00)
== END 2024-05-22 12:29 | disposition home health service (06) | DRG 854 ==
LOC: ER 13:54 → ERHOLD 17:15 → 2ND 22:05
PROVIDERS: ADMIT Hospitalist; ATTEND Hospitalist
PROC: 0JBR0ZZ Excision of Left Foot Subcutaneous Tissue and Fascia, Open Approach (ICD-10-PCS; principal; 2024-05-16 15:15)
DX: A41.01 Sepsis due to Methicillin susceptible Staphylococcus aureus (principal); E11.52 Type 2 diabetes mellitus with diabetic peripheral angiopathy with gangrene; L03.116 Cellulitis of left lower limb; L02.416 Cutaneous abscess of left lower limb; E87.20 Acidosis, unspecified; E44.0 Moderate protein-calorie malnutrition; R65.20 Severe sepsis without septic shock; E78.00 Pure hypercholesterolemia, unspecified; M10.9 Gout, unspecified; E78.5 Hyperlipidemia, unspecified; D50.9 Iron deficiency anemia, unspecified; D63.8 Anemia in other chronic diseases classified elsewhere; N28.9 Disorder of kidney and ureter, unspecified; E11.621 Type 2 diabetes mellitus with foot ulcer; L97.529 Non-pressure chronic ulcer of other part of left foot with unspecified severity; R74.01 Elevation of levels of liver transaminase levels; Z68.25 Body mass index [BMI] 25.0-25.9, adult; Z96.642 Presence of left artificial hip joint; Z79.899 Other long term (current) drug therapy
CPT/HCPCS: 36415; 76705; 80053; 80061; 80074; 81001; 83036; 83605; 83735; 84100; 84132; 84550; 85025; 85610; 85730; 87040; 87070; 87077; 87186; 87205; 88304; 93005; 93926; 93971; 96365; 96366; 96367; 96375; 97116; 97161; 99285; J0692; J1170; J1171; J2003; J2250; J2270; J2405; J2704; J2919; J3010; J7030; J7050; J7120

== ENCOUNTER 2024-05-30 09:12 | Day surgery (SDC) | payer OTHER ==
[2024-05-30] MEDS: Ringers Lactate 1,000 ML IV ONE (09:45)
[2024-05-30] MEDS ORDERED: MINERAL OIL, LITE 10 ML VIAL ONE ×4 (10:40→12:57)
[2024-05-30] MEDS ORDERED: FENTANYL CITR 100 MCG/2 ML ONE ×2 (10:43→12:16)
[2024-05-30] MEDS ORDERED: ONDANSETRON 4 MG/2 ML VIAL ONE (10:43)
[2024-05-30] MEDS ORDERED: LIDOCAINE 2% MPF 5 ML VIAL ONE (10:43)
[2024-05-30] MEDS ORDERED: propofoL 200 MG/20 ML VIAL IV ONE (10:43)
--- NOTE | 2024-05-30 11:36 | P.HP ---
Date of Service: 05/30/24
[2024-05-30] MEDS ORDERED: EPHEDRINE SULF 50 MG/ML VIAL ONE (11:41)
[2024-05-30] MEDS ORDERED: dexAMETHasone 4 MG/ML VIAL ONE (11:45)
[2024-05-30] MEDS: EPINEPHRINE 1 MG/ML VIAL ONE (12:12)
[2024-05-30] MEDS: LIDOCAINE HCL/EPINEPHRINE 20 ML MDV ONE (12:19)
[2024-05-30] MEDS ORDERED: HYDROCODONE/APAP 7.5/325 MG TAB PO PRN (12:58)
[2024-05-30] MEDS ORDERED: Ringers Lactate 1,000 ML IV SCH (13:00)
--- NOTE | 2024-05-30 13:03 | P.OP ---
Preoperative diagnosis: Open wound at the left ankle Postoperative diagnosis: The same Primary procedure: Split-thickness skin graft from left lateral thigh to left ankle Anesthesia: General Estimated blood loss: Less than 20 cc Specimen: None sent Operative Technique: The patient brought the operating room placed supine on the table. After the induction of adequate general anesthesia, attention was turned towards the left leg. The upper thigh was prepped with a chlorhexidine solution as well as the left ankle, and was draped in usual aseptic manner. After having set the dermatome at 26,000 of an inch, with a 2 inch rider a 7 inch piece of skin was removed from the left upper thigh. [7 x 2 inches]. The specimen was then carefully placed into a saline soaked 4 x 4 and left decided to be prepped while we inspected the actual surgical wound. On inspection of the wound at the ankle this has improved markedly over the last week and a half with the wound VAC that had been used at home. The lower edge did still have some gouty debris that was sharply debrided from the wound itself. Having established a good clean surgical base, the piece of donor skin was now placed into a 1.5-1 meshing device. It was measured for its full length. It was then brought up to the wound and applied in such a manner as to completely cover it. The stapler was used to tack down the edges of the graft to the wound margins. The center portion was then secured using interrupted sutures of chromic. Having obtained excellent coverage of the cyst redundant pieces of skin were then trimmed back to the edges. The Adaptic was now placed over our our grafted site. The TAMERA piece of sponge was cut to an appropriate size. This was placed over Adaptic and the wound VAC was applied in the normal manner. On applying suction, we had excellent covering closure and anticipate good results with this piece of skin. The donor site was now dressed also with Xeroform gauze and again Adaptic dressings placed over this. At the end the procedure the patient was in a stable condition when sent to the recovery room. Needle sponge instrument count were correct. No drains were placed. Complications: None Transferred to: Recovery Room Condition: Good
[2024-05-30] MEDS: HYDROMORPHONE HCL 1 MG/ML INJ ONE (13:11)
[2024-05-30 14:53] VITALS: BP 137/72; TEMP 96.6; O2SAT 95
== END 2024-05-30 14:36 | disposition home or self-care (01) ==
LOC: OR 09:12
PROVIDERS: ATTEND Surgery
PROC: 0HBJXZZ Excision of Left Upper Leg Skin, External Approach (ICD-10-PCS; 2024-05-30)
PROC: 0HRNX74 Replacement of Left Foot Skin with Autologous Tissue Substitute, Partial Thickness, External Approach (ICD-10-PCS; principal; 2024-05-30 11:00)
DX: S91.002D Unspecified open wound, left ankle, subsequent encounter (principal); M10.072 Idiopathic gout, left ankle and foot
CPT/HCPCS: 15120; J2704; J1100; J2003; J3010 ×2; J0171; J1171; J2405; J7120

== ENCOUNTER 2024-06-05 17:18 | Emergency (ER) | payer OTHER ==
--- OUTSIDE RECORDS SUMMARY | 2024-06-05 17:21 | XMS REPORT | Continuity of Care Document ---
Author Name Unknown Address [address] [facility] [place] [address] [facility] [address] [place] [address] Care Team Providers Care Commercial Loan Analyst Name Role Phone Mary Ann Hernandez Attending Clinician Unavail diamante Allen Attending Clinician Unavailable OMER HANEY P.A. Attending Clinician Unavail able SEJAL DALAL M.D. Attending Clinician Shellie Ellsworth Attending Clinician Unavailable SELENE JOHNSON M.D. Attending Clinician Unavailab jewell Allen Admitting Clinician Unavailable Jodee Admitting Clinician Unavailable Payers Payer Name Policy Type Policy Number Effective Date Expirati on Date Source [facility] - PHYSIC[facility] HEALTH CHOICE (MEDICARE REPLACEMENT HMO) [id number] 2022 00:00:00 [facility] [id number] [facility] CHO[facility] (POS II) [id number] 2017 00:00:00 2022 00:00:00 Problems Condition Name Condition Details Condition Category Status Onset Date Resolution Date Last Treatment Date Treating Clinician Comments Source Gout Gout Problem Active 2021-07 00:00: 00 [facility] Acute gout Acute Gout Problem Active 2021-07 00:00: 00 [facility] Elevated blood-pres sure reading without diagnosis of hypertensi on Elevated Blood-pres sure Reading without Diagnosis of Hypertensi on Problem Active 2021-07 00:00: 00 [facility] Avascular necrosis of bone of hip Avascular Necrosis of Bone of Hip Problem Active 2018-07 00:00: 00 [facility] Abnormal liver function Abnormal Liver Function Problem Active 04-14 00:00: 00 [facility] Prediabete s Prediabete s Problem Active 2017-07 00:00: 00 [facility] Osteoarthr itis Osteoarthr itis Problem Active 2017-07 00:00: 00 [facility] Hyperlipid emia Hyperlipid emia Problem Active 02-09 00:00: 00 [facility] Steatosis of liver Steatosis of Liver Problem Active 02-09 00:00: 00 [facility] Vitamin D deficiency Vitamin D Deficiency Problem Active 12-23 00:00: 00 [facility] Hemoglobin A1C - diabetic control finding Hemoglobin a1C - Diabetic Control Finding Problem Active 12-23 00:00: 00 [facility] Clinical finding Clinical Finding Problem Active 12-23 00:00: 00 [facility] [id number] Mixed hyperlipid emia Problem Common [facility] [id number] Chronic gout of multiple sites, unspecifie d cause Problem [facility] [id number] Tophaceous gout Problem [facility] Trochanter ic bursitis of left hip Trochanter [...] D deficiency Problem [facility] [id number] Essential hypertensi on Problem [facility] Allergies, Adverse Reactions, Alerts Allergy Name Allergy Type Status Severity Reaction(s) Onset Date Inactive Date Treating Clinician Comments Source Amoxicil aries Allergy to substanc e Active Severe Hives [facility] dexameth asone Allergy to drug (finding ) [facility] fenoprof en Allergy to drug (finding ) [facility] Social History Social Habit Start Date Stop Date Quantity Comments Source History of Tobacco Use [facility] Sex Assigned At [facility] Smoking Status Start Date Stop Date Source Former Smoker [facility] Never Smoker [facility] Medications Ordered Medication Name Filled Medication Name [...] Capsule Gabapentin 100 MG Oral Capsule 2019-07 2-10 00:00: 00 Yes SEJAL DALAL M.D. TAKE ONE CAPSULE BY MOUTH EVERY NIGHT AT BEDTIME [facility] Vitamin D 125 MCG (5000 UT) CAPS Vitamin D 125 MCG (5000 UT) CAPS 2019-07 210 00:00: 00 Yes SEJAL DALAL M.D. TAKE DIRECTED. [facility] HYDROcodone -Acetaminop hen 10-325 MG Oral Tablet HYDROcodone -Acetaminop hen 10-325 MG Oral Tablet 2019-07 0-22 00:00: 00 Yes SEJAL DALAL M.D. 1 Q4H TAKE 1 TABLET EVERY 4 HOURS [facility] traMADol HCl - 50 MG Oral Tablet traMADol HCl - 50 MG Oral Tablet 2019-07 0-02 00:00: 00 Yes SEJAL DALAL M.D. 1 TO 2 TABLET EVERY 6-8 HOURS PRN PN [facility] Vitamin D3 1.25 MG (79535 UT) TABS Vitamin D3 1.25 MG (60731 UT) TABS 2019- 9-23 00:00: 00 Yes SEJAL DALAL M.D. TAKE 1 TABLET Weekly FOR 8 WEEKS UNTIL COMPLETE [facility] TaperDex 6-Day 1.5 MG (21) Oral Tablet Therapy Pack TaperDex 6-Day 1.5 MG (21) Oral Tablet Therapy Pack 2018-07 0-29 00:00: 00 Yes SELENE JOHNSON M.D. TAKE DIRECTED FOR 6 DAYS [facility] Fenoprofen Calcium 600 MG Oral Tablet Fenoprofen Calcium 600 MG Oral Tablet 2018-07 00:00: 00 Yes SELENE Armstrong.Husam TAKE 1 CAP 3 TIMES A DAY WITH FOOD AFTER TAPER DEX FINISHED FOR 30 DAYS QTY 90 [facility] Indomethaci n ER 75 MG Oral Capsule Extended Release Indomethaci n ER 75 MG Oral Capsule Extended Release Yes [facility] Allopurinol 300 MG Oral Tablet Allopurinol 300 MG Oral Tablet Yes [facility] Crestor 20 MG Oral Tablet Crestor 20 MG Oral Tablet Yes [facility] allopurinol 100 mg tablet TAKE 2 TABLET BY MOUTH EVERYDAY AT BEDTIME allopurinol 100 mg tablet TAKE 2 TABLET BY MOUTH EVERYDAY AT BEDTIME No allopurino l 100 mg tablet TAKE 2 TABLET BY MOUTH EVERYDAY AT BEDTIME [facility] febuxostat 40 mg tablet TAKE 1 TABLET BY MOUTH EVERY DAY febuxostat 40 mg tablet TAKE 1 TABLET BY MOUTH EVERY DAY No febuxostat 40 mg tablet TAKE 1 TABLET BY MOUTH EVERY DAY [facility] allopurinol 300 mg tablet TAKE 1 TABLET BY MOUTH EVERY DAY allopurinol 300 mg tablet TAKE 1 TABLET BY MOUTH EVERY DAY No allopurino l 300 mg tablet TAKE 1 TABLET BY MOUTH EVERY DAY [facility] indomethaci n ER 75 mg capsule,ext ended release TAKE 1 CAPSULE BY MOUTH TWICE A DAY NEEDED indomethaci n ER 75 mg capsule,ext ended release TAKE 1 CAPSULE BY MOUTH TWICE A DAY NEEDED No indomethac in ER 75 mg capsule,ex tended release TAKE 1 CAPSULE BY MOUTH TWICE A DAY NEEDED [facility] rosuvastati n 20 mg tablet TAKE 1 TABLET BY MOUTH EVERYDAY AT BEDTIME rosuvastati n 20 mg tablet TAKE 1 TABLET BY MOUTH EVERYDAY AT BEDTIME No rosuvastat in 20 mg tablet TAKE 1 TABLET BY MOUTH EVERYDAY AT BEDTIME [facility] aspirin 325 mg tablet,oneal yed release TAKE 1 TABLET BY MOUTH EVERY 12 HOURS aspirin 325 mg tablet,oneal yed release TAKE 1 TABLET BY MOUTH EVERY 12 HOURS No aspirin 325 mg tablet,del ayed release TAKE 1 TABLET BY MOUTH EVERY 12 HOURS [facility] cholecalcif charly (vitamin D3) 125 mcg (5,000 unit) capsule TAKE DIRECTED. cholecalcif charly (vitamin D3) 125 mcg (5,000 unit) capsule TAKE DIRECTED. No cholecalci ferol (vitamin D3) 125 mcg (5,000 unit) capsule TAKE DIRECTED. [facility] gabapentin 300 mg capsule TAKE 1 CAPSULE BY MOUTH TWICE A DAY gabapentin 300 mg capsule TAKE 1 CAPSULE BY MOUTH TWICE A DAY No gabapentin 300 mg capsule TAKE 1 CAPSULE BY MOUTH TWICE A DAY [facility] indomethaci n ER [...] 1 TABLET BY MOUTH EVERY DAY@ BEDTIME [facility] indomethaci n [...] TAKE 1 TABLET BY MOUTH AT BEDTIME [facility] indomethaci n ER 75 mg capsule,ext ended release TAKE 1 CAPSULE BY MOUTH TWICE A DAY NEEDED indomethaci n ER 75 mg capsule,ext ended release TAKE 1 CAPSULE BY MOUTH TWICE A DAY NEEDED No indomethac in ER 75 mg capsule,ex tended release TAKE 1 CAPSULE BY MOUTH TWICE A DAY NEEDED [facility] rosuvastati n 20 mg tablet TAKE 1 TABLET BY MOUTH AT BEDTIME rosuvastati n 20 mg tablet TAKE 1 TABLET BY MOUTH AT BEDTIME No rosuvastat in 20 mg tablet TAKE 1 TABLET BY MOUTH AT BEDTIME [facility] Uloric 40 mg tablet Take 1 tablet every day by oral route. Uloric 40 mg tablet Take 1 tablet every day by oral route. No 1 Q1D Uloric 40 mg tablet Take 1 tablet every day by oral route. [facility] Indomethaci n ER 75 MG Indomethaci n ER 75 MG No 1{capsu le_with _food} QD Indomethac in ER 75 MG Allopurinol 300 MG Allopurinol 300 MG No 1{table t} QD Allopurino l 300 MG Rosuvastati n Calcium 40 MG Rosuvastati n Calcium 40 MG No 1{table t} QD Rosuvastat in Calcium 40 MG Vital Signs Vital Name Observation Time Observation Value Comments S araceli height 2024-04-09 13:20:00 63 [in_i] Commo n [facility] weight 2024-04-09 13:20:00 156.0 [lb_av] Co mmon [facility] temperature 2024-04-09 13:20:00 97.4 [degF] Com mon [facility] bmi 2024-04-09 13:20:00 27.63 kg/m2 Comm on [facility] oximetry 2024-04-09 13:20:00 98 % Commo n [facility] respiratory rate 2024-04-09 13:20:00 16 /min [facility] blood pressure systolic 2024-04-09 13:20:00 122 mm[Hg] [facility] blood pressure diastolic 2024-04-09 13:20:00 76 mm[Hg] [facility] height 2024-03-12 13:20:00 63 [in_i] Commo n [facility] weight 2024-03-12 13:20:00 154 [lb_av] Comm on [facility] temperature 2024-03-12 13:20:00 98.3 [degF] Com [facility] bmi 2024-03-12 13:20:00 27.28 kg/m2 Comm on [facility] oximetry 2024-03-12 13:20:00 98 % Commo n [facility] respiratory rate 2024-03-12 13:20:00 16 /min Common [facility] blood pressure systolic 2024-03-12 13:20:00 158 mm[Hg] [facility] blood pressure diastolic 2024-03-12 13:20:00 72 mm[Hg] Common [facility] height 2024-03-12 13:20:00 63 [in_i] Commo n [facility] weight 2024-03-12 13:20:00 154 [lb_av] Comm on [facility] temperature 2024-03-12 13:20:00 98.3 [degF] Com [facility] bmi 2024-03-12 13:20:00 27.28 kg/m2 Comm on [facility] oximetry 2024-03-12 13:20:00 98 % Commo n [facility] respiratory rate 2024-03-12 13:20:00 16 /min Common [facility] blood pressure systolic 2024-03-12 13:20:00 158 mm[Hg] Common Spiri t [facility] blood pressure diastolic 2024-03-12 13:20:00 72 mm[Hg] Common [facility] height 2024-02-13 13:20:00 63 [in_i] Commo n [facility] weight 2024-02-13 13:20:00 155 [lb_av] Comm on [facility] temperature 2024-02-13 13:20:00 97.5 [degF] Com mon [facility] bmi 2024-02-13 13:20:00 27.45 kg/m2 Comm on [facility] oximetry 2024-02-13 13:20:00 96 % Commo n [facility] respiratory rate 2024-02-13 13:20:00 16 /min Common [facility] blood pressure systolic 2024-02-13 13:20:00 142 mm[Hg] [facility] blood pressure diastolic 2024-02-13 13:20:00 80 mm[Hg] [facility] BP Diastolic 2022-12-30 00:00:00 82 mm[Hg] [facility] Height 2022-12-30 00:00:00 63 [in_i] [facility] BMI (Body Mass Index) 2022-12-30 00:00:00 29.8 kg/m2 [facility] BP Systolic 2022-12-30 00:00:00 137 mm[Hg] [facility] Body Weight 2022-12-30 00:00:00 168 [lb_av] [facility] BP Diastolic 2022-05-24 00:00:00 72 mm[Hg] [facility] Height 2022-05-24 00:00:00 63 [in_i] [facility] BMI (Body Mass Index) 2022-05-24 00:00:00 29 kg/m2 [facility] BP Systolic 2022-05-24 00:00:00 158 mm[Hg] [facility] Body Weight 2022-05-24 00:00:00 163.9 [facility] 2022-05-06 00:00:00 70 mm[Hg] [facility] Height 2022-05-06 00:00:00 63 [in_i] [facility] BMI (Body Mass Index) 2022-05-06 00:00:00 28 kg/m2 [facility] BP Systolic 2022-05-06 00:00:00 136 mm[Hg] [facility] Body Weight 2022-05-06 00:00:00 158 [lb_av] [facility] BP Diastolic 2021-02-03 00:00:00 78 mm[Hg] [facility] Height 2021-02-03 00:00:00 63 [in_i] [facility] BMI (Body Mass Index) 2021-02-03 00:00:00 27.6 kg/m2 [facility] BP Systolic 2021-02-03 00:00:00 118 mm[Hg] [facility] age [facility] Body Weight 2021-02-03 00:00:00 156 [lb_av] [facility] Height 2020-02-19 00:00:00 63 [in_i] [facility] BMI (Body Mass Index) 2020-02-19 00:00:00 28.7 kg/m2 [facility] Body Weight 2020-02-19 00:00:00 162 [lb_av] [facility] BP Diastolic 2019-04-11 00:00:00 76 mm[Hg] [facility] Height 2019-04-11 00:00:00 63 [in_i] [facility] BMI (Body Mass Index) 2019-04-11 00:00:00 27.8 kg/m2 [facility] BP Systolic 2019-04-11 00:00:00 126 mm[Hg] [facility] Body Weight 2019-04-11 00:00:00 157 [lb_av] [facility] BP Diastolic 2019-01-25 00:00:00 72 mm[Hg] [facility] Height 2019-01-25 00:00:00 63 [in_i] [facility] BMI (Body Mass Index) 2019-01-25 00:00:00 28.4 kg/m2 [facility] BP Systolic 2019-01-25 00:00:00 124 mm[Hg] [facility] Body Weight 2019-01-25 00:00:00 160.2 [...] XRAY HIP UNILATERAL MIN 2 VWS LEFT [id number] 2020-05-19 00:00:00 [facility] Total Replacement of Hip 2020-04-30 00:00:00 [facility] Physical Therapy 2019-05-28 00:00:00 [facility], liver 2019-04-11 00:00:00 [facility] MRI, hip, w/o contrast 2019-04-11 00:00:00 [facility] Colonoscopy 2013-07-31 00:00:00 [facility] History of Knee Surgery [facility] Plan of Care Planned Activity Planned Date Details Comments Source Diagnostic Test Pending 2022-12-30 00:00:00 uric acid, serum or plasma [code = uric acid, serum or plasma] [facility] Diagnostic Test Pending 2022-12-30 00:00:00 CMP, serum or plasma [code = CMP, serum or plasma] [facility] Diagnostic Test Pending 2022-12-30 00:00:00 lipid panel, serum [code = lipid panel, serum] [facility] Diagnostic Test Pending 2022-12-30 00:00:00 CBC w/ auto diff [code = CBC w/ auto diff] [facility] Diagnostic Test Pending 2022-12-30 00:00:00 PSA, serum or plasma [code = PSA, serum or plasma] [facility] Instructions [facility] Encounters Start Date/Time End Date/Time Encounter Type Admission Type Attending Clinicians Care Facility Care Department Encounter ID Source 2024-02-13 13:01:01 Outpatient Mary Ann Hernandez [facility] [id number] [facility] 2024-05-17 00:00:00 2024-05-17 00:00:00 (TEL) [facility] [id number] [facility] 2024-04-09 00:00:00 2024-04-09 00:00:00 OFFICE VISIT ESTAB PT LEVEL 3 [facility] [id number] [facility] 2024-03-12 00:00:00 2024-03-12 00:00:00 OFFICE VISIT ESTAB PT LEVEL 4 [facility] [id number] [facility] 2024-03-12 00:00:00 2024-03-12 00:00:00 INIT ANNUAL [facility] STLC [id number] [facility] 2024-03-11 00:00:00 2024-03-11 00:00:00 (TEL) [facility] STLC [id number] [facility] 2024-02-13 00:00:00 2024-02-13 00:00:00 OFFICE VISIT NEW PT LEVEL 4 [facility] [id number] [facility] 2024-02-13 00:00:00 2024-02-13 00:00:00 (TEL) [facility] [id number] [facility] 2023-08-23 00:00:00 2023-08-23 00:00:00 Outpatient Cerana_M_HO U_MD VFP VFP [id number] [facility] 2023-02-20 00:00:00 2023-02-20 00:00:00 Outpatient Cerana_M_HO U_MD VFP VFP [id number] [facility] 2022-12-30 00:00:00 2022-12-30 00:00:00 Ronen Augustin MD: [id number], [address], [place] [address] , Ph. VFP [place] - [facility] - [place] - VM_HOU_Memo rial [id number] [facility] 2022-12-29 00:00:00 2022-12-29 00:00:00 Outpatient Cerana_M VFP VFP [id number] [facility] 2022-12-29 00:00:00 2022-12-29 00:00:00 Outpatient Cerana_M VFP VFP [id number] [facility] 2022-12-29 00:00:00 2022-12-29 00:00:00 Outpatient Cerana_M_HO U_MD VFP VFP [id number] [facility] 2022-12-10 00:00:00 2022-12-10 00:00:00 Outpatient Cerana_M VFP VFP [id number] [facility] 2022-09-28 00:00:00 2022-09-28 00:00:00 Outpatient Cerana_M VFP VFP [id number] [facility] 2022-08-11 00:00:00 2022-08-11 00:00:00 Outpatient Cerana_M VFP VFP [id number] [facility] 2022-07-07 00:00:00 2022-07-07 00:00:00 Outpatient Cerana_M VFP VFP [id number] [facility] 2022-06-02 00:00:00 2022-06-02 00:00:00 Outpatient Cerana_M VFP VFP [id number] [facility] 2022-05-24 00:00:00 2022-05-24 00:00:00 Outpatient Cerana_M VFP VFP [id number] [facility] 2022-05-24 00:00:00 2022-05-24 00:00:00 Ronen Augustin MD: [id number], [address], [place] [id number] , Ph. VFP [facility] - [place] - VM_HOU_Memo rial [id number] [facility] 2022-05-06 00:00:00 2022-05-06 00:00:00 Outpatient Cerana_M VFP VFP [id number] [facility] 2022-05-06 00:00:00 2022-05-06 00:00:00 Ronen Augustin MD: [address], [facility] [address] [address] , Ph. VFP [facility] - [place] - VM_HOU_Memo rial [id number] [facility] 2022-05-05 00:00:00 2022-05-05 00:00:00 Outpatient Cerana_M VFP VFP [id number] [facility] 2021-02-05 00:00:00 2021-02-05 00:00:00 Outpatient Cerana_M VFP VFP [id number] [facility] 2021-02-03 00:00:00 2021-02-03 00:00:00 Valentin Rosado MD: [id number], [address] [address] , Ph. Cerana_M VFP [facility] - VM_HOU_Memo rial [id number] [facility] 2020-09-02 03:31:00 2020-09-02 03:31:00 Outpatient Cerana_M VFP VFP [id number] [facility] 2020-07-09 09:15:00 2020-07-09 09:15:00 Appointmen t; OMER HANEY P.A. ADAMEK, NICOLE, P.A. [facility] [id number] [place] [facility] 2020-05-21 13:45:00 2020-05-21 13:45:00 Appointmen t; OMER HANEY P.A. ADAMEK, NICOLE, P.A. [facility], [address] [id number] [place] [facility] 2020-05-05 10:30:00 2020-05-05 10:30:00 Appointmen t; SEJAL DALAL M.D. FREEDHAND, ADAM, M.D. [facility] [id number] [place] [facility] 2020-04-16 13:30:00 2020-04-16 13:30:00 Appointmen t; SEJAL DALAL M.D. FREEDHAND, ADAM, M.D. [facility] Orthopedics [facility] [id number] [place] [facility] 2020-03-08 12:08:00 2020-03-08 12:08:00 Outpatient Feldman_M VFP VFP [id number] [facility] 2020-02-21 09:32:00 2020-02-21 09:32:00 Outpatient Feldman_M VFP VFP [id number] [facility] 2020-02-19 00:00:00 2020-02-19 00:00:00 Ronen Castro MD: [address], [address] [address] , Ph. Feldman_M VFP [place] - [facility] - VM_HOU_Memo rial [id number] [facility] 2019-05-28 14:00:00 2019-05-28 14:00:00 Appointmen t; SELENE JOHNSON M.D. CUPIC, ZORAN, M.D. [facility] Orthopedics [facility] [id number] [place] [facility] 2019-04-11 00:00:00 2019-04-11 00:00:00 Ronen Castro MD: [address], [address], [place] [address] , Ph. VFP [place] - [facility] - VFP-Memoria l [facility] [id number] [facility] 2019-01-25 00:00:00 2019-01-25 00:00:00 Ronen Castro MD: [address], [address], [place] [address] , Ph. [place]FP [place] [facility] - VFP-Memoria l [place] [id number] [facility] e Results Test Description Test Time Test Comments Results Result Co mments Source Hemoglobin A1c/Hemoglobin.total in [id number] 00:00:00* Test Item Value Reference Range Interpretation Comme nts Hemoglobin A1c/Hemoglobin.to mahendra in Blood (test code = 4548-4) 6.0 % 1.0-5.7 H average blood glucose (calcu lation) (test code = average blood glucose (calculation)) 126 mg/dL [facility] - Serum or [id number] 00:00:00* Test Item Value Reference Range Interpretation [...] (test code = 2089-1) 118 mg/dL <130 [facility] CenterHavieotl13-Fftgtxyyrbxyav D3+25-Hydroxyvitamin D2 [Mass/volume] in Serum or [id number] 00:00:00* Test Item Value Reference Range Interpretation Comme nts vitamin D 25OH (test code = vitamin D 25OH) 26.7 NG/mL 30.0-96.0 L [facility], serum or [id number] 00:00:00* Test Item Value Reference Range Interpretation Comme nts PSA, total (test code = PSA, total) 1.06 NG/mL <4.00 [facility] [Mass/volume] in Serum or [id number] 00:00:00 * Test Item Value Reference Range Interpretation Comme nts uric acid (test code = uric acid) 7.6 mg/dL 3.5-7.2 H [facility] 2000 panel - Serum or Plasma 2022-05-06 00:00:00* Test Item Value Reference Range Interpretation Comme nts ALT (test code = ALT) 43 U/L [...] gap (test code = anion gap) [address] [facility][U] XRAY HIP UNILATERAL MIN 2 VWS LEFT [id number] 14:17:00Images acquired, not reported on this accession number.[facility][U] XRAY HIP UNILATERAL MIN 2 VWS LEFT [id number] 13:38:00Images acquired, not reported on this accession number.[facility]
[2024-06-05 20:10] LABS: Absolute Basophils 0.1 K/uL (0-0.5); Absolute Lymphocytes (CBC) 1.3 K/uL (0.7-4.9); Absolute Monocytes 1.3 K/uL (0.1-1.3); Absolute Neutrophil 15.5 K/uL (1.8-8.0); Basophils % 0.4 % (0-1.3); Eosinophils % 0.1 % (0-4.4); Hematocrit 34.5 % (39.6-49.0); Hemoglobin 11.6 g/dL (13.6-17.9); Lymphocytes % 7.2 % (15.3-44.8); MCH 30.4 pg (27.0-35.0); MCHC 33.5 g/dL (32.0-36.0); MCV 90.6 fL (80-100); MPV 6.9 fL (7.6-11.3); Monocytes % 7.1 % (3.3-12.3); Neutrophils % 85.2 % (41.7-73.7); Platelets 417 thou/uL (152-406); RBC Red Blood Cell Count 3.81 M/uL (4.33-5.43); Red Cell Distribution Width 13.6 % (12.1-15.2)
[2024-06-05 20:13] LABS: D-Dimer 1.087 FEUug/mL (0-0.500); PT Prothrombin Time 13.7 SECONDS (9.4-12.5); Protime INR 1.23
[2024-06-05 20:24] LABS: Anion Gap 11.2 mEq/L (5.0-15.0); Potassium 3.2 mEq/L (3.5-5.1); Troponin High Sensitivity 6.8 pg/mL (<58.9)
[2024-06-05 21:13] LABS: Blood Morphology Comment NOT SEEN (NOT SEEN); Platelet Estimate INCR; White Blood Cell Scan OK (OK)
--- NOTE | 2024-06-05 21:30 | RAD REPORT ---
EXAM: CT Chest For Pe Angio TECHNIQUE: CT angiogram of the chest was performed following intravenous contrast administration, inc luding sagittal and coronal as well as maximum intensity projection reformats. One or more of the following dose reduction techniques were used: Automated exposure control, adjustment of the mA and k V according to patient size, and iterative reconstruction. Unless otherwise specified, incidental findings do not require dedicated imaging follow-up. INDICATION: DYSPNEA COMPARISON: None. FINDINGS: LINES/TUBES: None. PULMONARY ARTERIES: Main pulmonary arteries are normal in caliber. No filling defects within the pul monary arteries to suggest pulmonary embolus. LUNGS AND AIRWAYS: The lungs and central airways are normal without focal abnormality. PLEURA: No effusion or pneumothorax. HEART AND MEDIASTINUM: The visualized thyroid gland is normal. No mediastinal, hilar, or axillary lym phadenopathy. Heart is unremarkable. No pericardial effusion. SOFT TISSUES AND BONES: No acute osseous abnormality. No significant soft tissue finding. UPPER ABDOMEN: Unremarkable. IMPRESSION: No evidence of acute central pulmonary emboli. No suspicious intrathoracic findings..
[2024-06-05] MEDS ORDERED: CEPHALEXIN 250 MG CAP ONE (21:47)
[2024-06-05] MEDS ORDERED: ONDANSETRON 4 MG (ODT) TAB ONE (21:47)
[2024-06-05] MEDS ORDERED: APIXABAN 5 MG TABLET ONE (21:47)
[2024-06-05] MEDS ORDERED: SMZ./TMP. 800/160 MG TABLET ONE (21:47)
[2024-06-05] MEDS ORDERED: HYDROCODONE/APAP 5/325 MG TAB ONE (21:48)
--- NOTE | 2024-06-05 22:02 | ER ---
Nurse's Notes [facility] Name: Betsey Gómez Age: 63 yrs Sex: Male : 1960 Arrival Date: 06/05/2024 Time: 17:18 Bed 3 Private MD: Diagnosis: Left lower extremity Posterior Tibial DVT, Left Lower Extremity Cellulitis Presentation: 06/05 17:35 Chief complaint: Patient states: Was having an ultrasound of left leg due to having cm10 pain and sent to the ED due to having a blood clot. Coronavirus screen: Client denies travel out of the [place] in the last 14 days. Ebola Screen: Patient denies travel to an Ebola-affected area in the 21 days before illness onset. No symptoms or risks identified at this time. Initial Sepsis Screen: Does the patient meet any 2 criteria? No. Patient's initial sepsis screen is negative. Does the patient have a suspected source of infection? No. Patient's initial sepsis screen is negative. Risk Assessment: Do you want to hurt yourself or someone else? Patient reports no desire to harm self or others. Onset of symptoms was June 05, 2024. 17:35 Method Of Arrival: Wheelchair cm10 17:35 Acuity: SHALINI 3 cm10 Triage Assessment: 17:37 General: Appears in no apparent distress. comfortable, Behavior is calm, cooperative. cm10 Neuro: No deficits noted. Level of Consciousness is awake, alert, Oriented to person, place, time, situation, Appropriate for age. Respiratory: No deficits noted. Airway is patent Respiratory effort is even, unlabored, Respiratory pattern is regular, symmetrical. Historical: - Allergies: 17:37 No Known Allergies; cm10 - PMHx: 17:37 Gout; Hypercholesterolemia; cm10 - PSHx: 17:37 Skin grafting; cm10 - Immunization history:: Adult Immunizations up to date. - Infectious Disease History:: Denies. - Social history:: Smoking status: unknown. - Family history:: not pertinent. Screenin:21 [facility] ED Fall Risk Assessment (Adult) History of falling in the last 3 months, bp including since admission No falls in past 3 months (0 pts) Confusion or Disorientation No (0 pts) Intoxicated or Sedated No (0 pts) Impaired Gait No (0 pts) Mobility Assist Device Used No (0 pt) Altered Elimination No (0 pt) Score/Fall Risk Level 0 - 2 = Low Risk Oriented to surroundings, Maintained a safe environment, Assessed \T\ reinforced patient's understanding of fall precautions, Hourly rounding (assess needs \T\ fall precautionary measures) done. Abuse screen: Denies threats or abuse. Nutritional screening: No deficits noted. Tuberculosis screening: No symptoms or risk factors identified. Assessment: 18:54 General: Appears in no apparent distress. comfortable, well groomed, Behavior is calm, ph cooperative. Pain: Complains of pain in left leg. Neuro: Level of Consciousness is awake, alert, obeys commands, Oriented to person, place, time, situation. Cardiovascular: Capillary refill < 3 seconds in bilateral fingers Patient's skin is warm and dry. Respiratory: Airway is patent Respiratory effort is even, unlabored, Respiratory pattern is regular, symmetrical. Derm: Skin is pink, warm \T\ dry. 20:20 Reassessment: Patient appears in no apparent distress at this time. No changes from bp previously documented assessment. Patient and/or family updated on plan of care and expected duration. Pain level reassessed. Patient is alert, oriented x 3, equal unlabored respirations, skin warm/dry/pink. Vital Signs: 17:35 BP 102 / 58; Pulse 89; Resp 18; Temp 97.6(TE); Pulse Ox 100% on R/A; Weight 73.48 kg cm10 (R); Height 5 ft. 4 in. (R); Pain 5/10; 20:29 BP 103 / 67; Pulse 87; Resp 18; Pulse Ox 97% ; cp4 21:30 BP 96 / 60; Pulse 81; Resp 18; Pulse Ox 97% ; cp4 22:45 BP 107 / 66; Pulse 91; Resp 18; Pulse Ox 98% ; cp4 17:35 Body Mass Index 27.81 (73.48 kg, 162.56 cm) cm10 17:35 Pain Scale: Adult cm10 [place] Coma Score: 06/06 04:37 Eye Response: spontaneous(4). Motor Response: obeys commands(6). Verbal Response: sp4 oriented(5). Total: 15. ED Course: 06/05 17:22 Patient arrived in ED. mr 17:29 Monica Anaya MD is Attending Physician. gb1 17:35 Rodríguez Delgado, RN is Primary Nurse. bp 17:37 Triage completed. cm10 17:38 Arm band placed on right wrist. Patient placed in an exam room, on a stretcher. cm10 19:09 Initial lab(s) drawn, by me, sent to lab. Inserted saline lock: 20 gauge in right bp forearm, using aseptic technique. Blood collected. Flushed with 10 mL NS. 20:09 Attending Physician role handed off by Monica Anaya MD sp4 20:09 Claudio Basilio MD is Attending Physician. sp4 20:21 Bed in low position. Call light in reach. Side rails up X 1. bp 20:21 No provider procedures requiring assistance completed. bp 20:21 Lab(s) recollected, by me, sent to lab. bp 20:50 Primary Nurse role handed off by Rodríguez Delgado, BEATRIZ cp4 20:50 Krystal Orozco is Primary Nurse. cp4 21:00 CT Chest For PE Angio In Process Unspecified. EDMS 22:00 Robin Borja MD is Referral Physician. sp4 22:50 intact, bleeding controlled, No redness/swelling at site. Pressure dressing applied. cp4 22:51 Provided Education on: dvt. cp4 Administered Medications: 21:51 Drug: Trimethoprim-Sulfamethoxazole PO (160 mg-800 mg (DS) 1 tablet PO once Route: PO; cp4 22:49 Follow up: Response: No adverse reaction cp4 21:51 Drug: Ondansetron PO 4 mg PO once Route: PO; cp4 22:49 Follow up: Response: No adverse reaction cp4 21:52 Drug: HYDROcodone-acetaminophen PO 5 mg-325 mg 2 tabs PO once Route: PO; cp4 22:49 Follow up: Response: No adverse reaction; Pain is decreased cp4 21:52 Drug: Eliquis PO 10 mg PO once Route: PO; cp4 22:49 Follow up: Response: No adverse reaction cp4 21:52 Drug: Cephalexin PO 500 mg PO once Route: PO; cp4 22:49 Follow up: Response: No adverse reaction cp4 Medication: 20:21 VIS not applicable for this client. bp Outcome: 22:01 Discharge ordered by . sp4 22:50 Discharged to home via wheelchair, cp4 22:50 Condition: stable 22:50 Discharge instructions given to patient, family, Instructed on discharge instructions, follow up and referral plans. medication usage, Demonstrated understanding of instructions, follow-up care, medications, Prescriptions given X 4, 22:51 Patient left the ED. cp4 Signatures: Dispatcher [employer] EDOK Hoang Kelley, Reg Reg mr Sandhu Pamela, RN RN ph Rodríguez Delgado RN RN bp Claudio Basilio MD MD sp4 Eileen Cornejo RN RN cm10 Monica Anaya MD MD gb1 Krystal Orozco cp4 Corrections: (The following items were deleted from the chart) 22:45 21:30 BP 107 / 66; Pulse 91bpm; Resp 18bpm; Pulse Ox 98%; cp4 cp4
--- NOTE | 2024-06-05 22:02 | EDPHYS ---
Physician Documentation [facility] Name: Betsey Gómez Age: 63 yrs Sex: Male : 1960 Arrival Date: 06/05/2024 Time: 17:18 Bed 3 Private MD: ED Physician Claudio Basilio HPI: 06/05 18:52 This 63 yrs old Male presents to ER via Wheelchair with complaints of DVT. gb1 18:52 63-year-old male that was sent over from radiology with a left lower extremity DVT. He gb1 had a surgical procedure performed by Dr. Cornejo few weeks ago and all of a sudden last couple days his leg has been swollen. He also says he is short of breath no chest pain reported. He has a history of gout and hyperlipidemia.. 21:28 Patient has recent admission record from 05/15/2024 through 05/22/2024. Patient was sp4 been admitted for ulcerated food, left lower extremity cellulitis, gout, hyperlipidemia, systemic inflammatory response syndrome, foot abscess, lactic acidosis, transaminitis.. Patient originally presents left lower extremity ankle pain the patient was admitted and he was given split-thickness skin graft to left lateral ankle by Dr. Borja in surgery. . Patient was discharged with [facility] for wound VAC wound care dressing changes and [facility] with physical therapy. Patient's medications on discharge included allopurinol 300 mg daily, ezetimibe rosuvastatin 20 mg p.o. bedtime indomethacin 75 mg p.o. twice daily, levofloxacin 750 mg p.o. every 2 days, tramadol 50 mg as needed pain. Overall patient was diagnosed with foot ulcer status debridement and skin graft, cellulitis left lower extremity, severe sepsis, lactic acidosis, transaminitis, gout, hyperlipidemia.. Historical: - Allergies: 17:37 No Known Allergies; cm10 - PMHx: 17:37 Gout; Hypercholesterolemia; cm10 - PSHx: 17:37 Skin grafting; cm10 - Immunization history:: Adult Immunizations up to date. - Infectious Disease History:: Denies. - Social history:: Smoking status: unknown. - Family history:: not pertinent. ROS: 06/06 04:37 Constitutional: Negative for fever, chills, and weight loss, positive for left lower sp4 extremity pain and swelling, positive for recent left lateral ankle skin graft All other systems are negative, Exam: 06/05 18:52 Constitutional: This is a well developed, well nourished patient who is awake, alert, gb1 and in no acute distress. Head/Face: Normocephalic, atraumatic. Eyes: Pupils equal round and reactive to light, extra-ocular motions intact. Lids and lashes normal. Conjunctiva and sclera are non-icteric and not injected. Cornea within normal limits. Periorbital areas with no swelling, redness, or edema. ENT: Nares patent. No nasal discharge, no septal abnormalities noted. Tympanic membranes are normal and external auditory canals are clear. Oropharynx with no redness, swelling, or masses, exudates, or evidence of obstruction, uvula midline. Mucous membranes moist. Neck: Trachea midline, no thyromegaly or masses palpated, and no cervical lymphadenopathy. Supple, full range of motion without nuchal rigidity, or vertebral point tenderness. No Meningismus. Chest/axilla: Normal chest wall appearance and motion. Nontender with no deformity. No lesions are appreciated. Cardiovascular: Regular rate and rhythm with a normal S1 and S2. No gallops, murmurs, or rubs. Normal PMI, no JVD. No pulse deficits. Respiratory: Lungs have equal breath sounds bilaterally, clear to auscultation and percussion. No rales, rhonchi or wheezes noted. No increased work of breathing, no retractions or nasal flaring. MS/ Extremity: Pulses equal, no cyanosis. Neurovascular intact. Full, normal range of motion. Patient is left lower extremity is tender in the posterior calf area and his foot has some pitting edema +2. 06/06 04:37 Abdomen/GI: Soft, with normal bowel sounds. No distension or tympany. No guarding sp4 or rebound. No evidence of tenderness throughout. Skin: Warm, dry with normal turgor. Normal color with no rashes, no lesions, left lower extremity left lateral ankle there is recent skin graft which is in healing stages however the rest of the leg there is mild erythema and signs of mild cellulitis. Neuro: Awake and alert, GCS 15, oriented to person, place, time, and situation. Cranial nerves II-XII grossly intact. Motor strength 5/5 in all extremities. Sensory grossly intact. Psych: Awake, alert, with orientation to person, place and time. Behavior, mood, and affect are within normal limits Vital Signs: 06/05 17:35 BP 102 / 58; Pulse 89; Resp 18; Temp 97.6(TE); Pulse Ox 100% on R/A; Weight 73.48 kg cm10 (R); Height 5 ft. 4 in. (R); Pain 5/10; 20:29 BP 103 / 67; Pulse 87; Resp 18; Pulse Ox 97% ; cp4 21:30 BP 96 / 60; Pulse 81; Resp 18; Pulse Ox 97% ; cp4 22:45 BP 107 / 66; Pulse 91; Resp 18; Pulse Ox 98% ; cp4 17:35 Body Mass Index 27.81 (73.48 kg, 162.56 cm) cm10 17:35 Pain Scale: Adult cm10 Brendan Coma Score: 06/06 04:37 Eye Response: spontaneous(4). Motor Response: obeys commands(6). Verbal Response: sp4 oriented(5). Total: 15. MDM: 06/05 17:37 Medical Screening Exam initiated gb1 21:12 ED course: EXAMINATION: US LEFT LOWER EXTREMITYVENOUS DOPPLER CLINICAL INDICATION: [facility] [[email or web address] sp4 MAIN Lateral Left Ankle M10.072; S91.002D; T81.31XA N TECHNIQUE: Complete bilateral duplex sonography of the LEFT lower extremity veins was performed. The examination included compression for vein patency, color Doppler imaging and flow augmentation in response to distal compression of the distal external iliac, common femoral, femoral, popliteal, tibial, and great and small saphenous veins. COMPARISON: No prior exam. FINDINGS: Duplex sonography testing of the veins of the LEFT lower extremity was performed. Color flow imaging shows mildly expansile acute appearing thrombus within one of the paired posterior tibial veins, noncompressible, with no observable flow. Remainder of the left lower extremity veins to be compressible with [id number] color filling, with pulsatile and phasic flow throughout the remainder of the lower extremity deep and superficial veins examined. IMPRESSION: Exam is positive for deep venous thrombosis along one of the paired posterior tibial veins in the calf. . 06/06 04:37 ED course: EXAM: CT Chest For Pe Angio TECHNIQUE: CT angiogram of the chest was sp4 performed following intravenous contrast administration, including sagittal and coronal as well as maximum intensity projection reformats. One or more of the following dose reduction techniques were used: Automated exposure control, adjustment of the mA and kV according to patient size, and iterative reconstruction. Unless otherwise specified, incidental findings do not require dedicated imaging follow-up. INDICATION: DYSPNEA COMPARISON: None. FINDINGS: LINES/TUBES: None. PULMONARYARTERIES: Main pulmonary arteries are normal in caliber. No filling defects within the pulmonary arteries to suggest pulmonary embolus. LUNGS AND AIRWAYS: The lungs and central airways are normal without focal abnormality. PLEURA: No effusion or pneumothorax. HEARTAND MEDIASTINUM: The visualized thyroid gland is normal. No mediastinal, hilar, or axillary lymphadenopathy. Heart is unremarkable. No pericardial effusion. SOFT TISSUES AND BONES: No acute osseous abnormality. No significant soft tissue finding. UPPER ABDOMEN: Unremarkable. IMPRESSION: No evidence of acute central pulmonary emboli. No suspicious intrathoracic findings... 04:40 Differential Diagnosis altered mental status, sepsis, flu. Data reviewed: vital signs, sp4 nurses notes, lab test result(s), radiologic studies, CT scan. Consideration of Admission/Observation Escalation of care including admission/observation considered. ED course: Will prescribe Bactrim and cephalexin and start patient on Eliquis for acute left lower extremity DVT. Will advise close follow-up with primary care physician for continuation of anticoagulation. 06/05 18:42 Order name: Basic Metabolic Panel; Complete Time: 20:31 gb1 06/05 18:42 Order name: CBC with Diff; Complete Time: 21:14 gb1 06/05 18:42 Order name: D-Dimer; Complete Time: 20:31 gb1 06/05 18:42 Order name: NT PRO-BNP; Complete Time: 20:31 gb1 06/05 18:42 Order name: Troponin HS; Complete Time: 20:31 gb1 06/05 18:42 Order name: PT-INR; Complete Time: 20:31 gb1 06/05 21:13 Order name: CBC Smear Scan; Complete Time: 21:14 EDMS 06/05 18:42 Order name: CT Chest For PE Angio; Complete Time: 21:51 gb1 06/05 18:42 Order name: EKG; Complete Time: 18:42 gb1 06/05 18:42 Order name: Cardiac monitoring; Complete Time: 19:37 gb1 06/05 18:42 Order name: EKG - Nurse/Tech; Complete Time: 19:37 gb1 06/05 18:42 Order name: IV Saline Lock; Complete Time: 19:37 gb1 06/05 18:42 Order name: Labs collected and sent; Complete Time: 19:37 gb1 06/05 18:42 Order name: O2 Per Protocol; Complete Time: 19:37 gb1 06/05 18:42 Order name: O2 Sat Monitoring; Complete Time: 19:37 gb1 06/05 19:23 Order name: Misc. Order: recollect on blue, purple and green top; Complete Time: 20:12 vk Administered Medications: 06/05 21:51 Drug: Trimethoprim-Sulfamethoxazole PO (160 mg-800 mg (DS) 1 tablet PO once Route: PO; cp4 22:49 Follow up: Response: No adverse reaction cp4 21:51 Drug: Ondansetron PO 4 mg PO once Route: PO; cp4 22:49 Follow up: Response: No adverse reaction cp4 21:52 Drug: HYDROcodone-acetaminophen PO 5 mg-325 mg 2 tabs PO once Route: PO; cp4 22:49 Follow up: Response: No adverse reaction; Pain is decreased cp4 21:52 Drug: Eliquis PO 10 mg PO once Route: PO; cp4 22:49 Follow up: Response: No adverse reaction cp4 21:52 Drug: Cephalexin PO 500 mg PO once Route: PO; cp4 22:49 Follow up: Response: No adverse reaction cp4 Disposition Summary: 06/05/24 22:01 Discharge Ordered Notes: Location: Home sp4 Problem: new sp4 Symptoms: have improved sp4 Condition: Stable sp4 Diagnosis - Left lower extremity Posterior Tibial DVT, Left Lower Extremity Cellulitis sp4 Followup: sp4 - With: Robin Borja MD - When: 7 - 10 days - Reason: Recheck today's complaints Discharge Instructions: - Discharge Summary Sheet sp4 - Deep Vein Thrombosis sp4 Forms: - Patient Portal Instructions sp4 Prescriptions: - apixaban 5 mg Oral tablet - take 2 tablet ORAL route every 12 hours for 7 days Take Two tabs every 12 hours sp4 for the fist 7 days, Then One tab every 12 hours for 30 days; 74 tablet; Refills: 0, Product Selection Permitted - tramadol 100 mg Oral tablet - take 1 tablet ORAL route every 6 hours PRN pain; 30 tablet; Refills: 0, Product sp4 Selection Permitted - Cephalexin 500 mg Oral Capsule - take 1 capsule ORAL route every 12 hours for 10 days; 20 capsule; Refills: 0, sp4 Product Selection Permitted - Bactrim DS 800-160 mg Oral Tablet - take 1 tablet ORAL route every 12 hours for 10 days; 20 tablet; Refills: 0, sp4 Product Selection Permitted Signatures: Dispatcher [employer] Claudio Mcneil MD MD sp4 Eileen Cornejo RN RN cm10 Monica Anaya MD MD gb1 Krystal Orozco cp4 Jazzmine Mohamud Corrections: (The following items were deleted from the chart) 18:43 18:43 Chest For PE Angio+CT.RAD.BRZ ordered. EDSD EDMS
[2024-06-05 23:08] VITALS: TEMP 97.6
[2024-06-05 23:11] VITALS: BP 107/66; O2SAT 98
== END 2024-06-05 22:51 | disposition home or self-care (01) ==
LOC: ER 17:18
DX: I82.442 Acute embolism and thrombosis of left tibial vein (principal); L03.116 Cellulitis of left lower limb; Z98.890 Other specified postprocedural states
CPT/HCPCS: 85025; 80048; 36415; 85610; 85379; 84484; 83880; 71275; Q9967; Q0162